=== PATIENT | female | born 1945 | race Caucasian/White ===

== ENCOUNTER 2018-05-04 19:19 | Inpatient (IN) | payer MEDICARE, MEDICAID ==
[~2018-05-04] VITALS: Ht 162.6 cm; Wt 85.7 kg
[~2018-05-04 19:19] MED LIST: ACET-2178 PO; ALBU2.5V13 IH; BACL-141 PO; BENA5TAB6 PO; COR3 PO; FAMO20TA8 PO; FLUOCINONIDE; FLUT1BLS IH; FLUT1DIS3 IH; IPRA3AMP9 INH; LEVO500T2 PO; LORA2VIA34 IJ; MYLANTA PO; NITR0.4T49 SL; OMEP20CA10 PO; ONDA4TAB5 PO; P20 PO; THEO200T17 PO; UMECLIDINIUM BROMIDE PO
[2018-05-04] MEDS ORDERED: METHYLPREDNISOLONE SOD SUCC 125 MG/2 ML VIAL IV STA (22:09)
[2018-05-04] MEDS ORDERED: ALBUTEROL (0.083%) 2.5MG/3ML NEB HHN STA (22:09)
[2018-05-04 22:49] LABS: MEAN CORPUSCULAR HEMOGLOBIN 17.8 pg (28.0-32.0); MEAN CORPUSCULAR VOLUME 62.8 fL (81.0-99.0); MEAN PLATELET VOLUME 8.7 fl (7.4-10.4); PLATELET 424 x1000/uL (130-400); RED BLOOD CELL COUNT 3.17 mill/uL (4.2-5.4); RED CELL DISTRIBUTION WIDTH 21.9 % (11.6-14.6)
[2018-05-04 22:50] LABS: HEMATOCRIT. 19.9 % (36.0-48.0); HEMOGLOBIN. 5.6 g/dL (12.0-16.0)
[2018-05-04 22:52] LABS: CHLORIDE 104 mEq/L (98-107)
[2018-05-04 23:06] LABS: PLATELET ESTIMATE NORMAL
[2018-05-05 01:09] LABS: CLARITY URINE CLOUDY (CLEAR); COLOR URINE YELLOW (YELLOW); KETONES URINE NEGATIVE (NEGATIVE); LEUKOCYTE ESTERASE URINE 3+ (NEGATIVE); NITRITE URINE NEGATIVE (NEGATIVE); OCCULT BLOOD URINE NEGATIVE (NEGATIVE); PH URINE 5.5 (4.5-8.0); PROTEIN URINE NEGATIVE (NEGATIVE); SPECIFIC GRAVITY URINE 1.012 (1.005-1.030); UROBILINOGEN URINE 0.2 E.U./dL (0.2-1.0)
[2018-05-05] MEDS ORDERED: CEFTRIAXONE 1 G PREMIX 50 ML IV ONE (04:30)
[2018-05-05] MEDS ORDERED: ACETAMINOPHEN 650MG/20.3ML UDC GT PRN (08:30)
[2018-05-05] MEDS ORDERED: DOCUSATE SODIUM 100MG CAPSULE PO PRN (08:30)
[2018-05-05] MEDS ORDERED: IPRATROPIUM/ALBUTEROL 0.5-3(2.5)MG/3ML NEB INH PRN (08:30)
[2018-05-05] MEDS ORDERED: DIPHENHYDRAMINE 50MG/ML VIAL IV PRN (08:30)
[2018-05-05] MEDS ORDERED: CLONIDINE 0.1MG TABLET PO PRN (08:30)
[2018-05-05] MEDS ORDERED: NA PHOS,M-B/NA PHOS,DI-BA ENEMA 118ML PR PRN (08:30)
[2018-05-05] MEDS ORDERED: HYDROCODONE/ACETAMINOPHEN 10/325MG TABLET PO PRN (08:30)
[2018-05-05] MEDS ORDERED: ACETAMINOPHEN 325MG TABLET PO PRN (08:30)
[2018-05-05] MEDS ORDERED: ONDANSETRON HCL 4MG/2ML INJ IV PRN (08:30)
[2018-05-05] MEDS ORDERED: MAGNESIUM/ALUMINUM HYDROXIDE/SIMETHICONE 30ML UDC PO PRN (08:30)
[2018-05-05] MEDS ORDERED: HYDROCODONE/ACETAMINOPHEN 5/325MG TABLET PO PRN (08:30)
[2018-05-05] MEDS ORDERED: ACETAMINOPHEN 650MG SUPP PR PRN (08:30)
[2018-05-05] MEDS ORDERED: GUAIFENESIN 200MG/10ML SUGAR FREE UDC PO PRN (08:30)
[2018-05-05 09:09] LABS: BASOPHILS % 2.2 % (0.0-2.0); EOSINOPHILS % 0.1 % (0.0-5.0); HEMATOCRIT. 28.2 % (36.0-48.0); HEMOGLOBIN. 8.6 g/dL (12.0-16.0); LYMPHOCYTES % 20.4 % (20.0-50.0); MEAN CORPUSCULAR HEMOGLOBIN 21.7 pg (28.0-32.0); MEAN CORPUSCULAR VOLUME 70.7 fL (81.0-99.0); MEAN PLATELET VOLUME 8.7 fl (7.4-10.4); MONOCYTES % 4.7 % (2.0-8.0); NEUTROPHILS % 72.6 % (40.0-76.0); PLATELET 393 x1000/uL (130-400); RED BLOOD CELL COUNT 3.98 mill/uL (4.2-5.4)
[2018-05-05 09:14] LABS: CHLORIDE 104 mEq/L (98-107)
[2018-05-05 09:19] LABS: D-DIMER 0.6 mg/L FEU (<0.50); INR 1.2; PROTHROMBIN TIME 11.8 sec (9.1-11.1)
[2018-05-05 09:21] LABS: LDL CHOLESTEROL 101 mg/dL (5-100); TOTAL IRON BINDING CAPACITY 475 ug/dL (250-450)
[2018-05-05 09:23] LABS: HDL CHOLESTEROL 50 mg/dL (40-59)
[2018-05-05] MEDS ORDERED: IOHEXOL-350 100 ML BOTTLE ONE (10:45)
[2018-05-05] MEDS ORDERED: LEVOFLOXACIN 500MG TABLET PO SCH (11:30)
[2018-05-05 11:48] VITALS: BP 129/67
[2018-05-05 12:00] VITALS: BP 129/67
[2018-05-05] MEDS: SODIUM CHLORIDE 0.9% INJ 3ML FLUSH IVF SCH ×2 (14:00→22:22)
[2018-05-05 15:57] LABS: CREATINE KINASE 32 IU/L (26-192)
[2018-05-05 15:58] LABS: CREATINE KINASE MB FRACTION 1.1 ng/mL (0.5-3.6)
[2018-05-05 16:00] VITALS: BP 125/52
[2018-05-05 20:00] VITALS: BP 143/58
[2018-05-05] MEDS ORDERED: CLOTRIMAZOLE 1% CREAM 30GM TOP SCH (21:00)
[2018-05-05] MEDS: NYSTATIN POWDER 15GM TOP SCH (21:50)
[2018-05-05] MEDS: BUDESONIDE 0.5MG/2ML NEB HHN SCH (22:00)
[2018-05-05] MEDS: ALBUTEROL (0.083%) 2.5MG/3ML NEB HHN SCH (22:01)
[2018-05-05 23:19] LABS: HEMATOCRIT 27.7 % (36.0-48.0); HEMOGLOBIN 8.5 g/dL (12.0-16.0)
[2018-05-06] VITALS: BP 128/60
[2018-05-06 00:11] LABS: CREATINE KINASE 38 IU/L (26-192); CREATINE KINASE MB FRACTION 1.4 ng/mL (0.5-3.6)
[2018-05-06 04:00] VITALS: BP 127/69
[2018-05-06] MEDS ORDERED: BENA20TA77 PO (04:36)
[2018-05-06] MEDS ORDERED: COR3 PO (04:36)
[2018-05-06] MEDS ORDERED: ACET-2178 MT (04:36)
[2018-05-06] MEDS ORDERED: IPRA3AMP31 NEB (04:36)
[2018-05-06] MEDS ORDERED: ASPI-1159 PO (04:36)
[2018-05-06] MEDS ORDERED: OMEP20CA10 PO (04:36)
[2018-05-06] MEDS ORDERED: DOCU-138 PO (04:36)
[2018-05-06] MEDS ORDERED: BACL-141 PO (04:36)
[2018-05-06] MEDS ORDERED: CRAN450T10 PO (04:36)
[2018-05-06 07:43] LABS: HEMOGLOBIN. 8.1 g/dL (12.0-16.0); MEAN CORPUSCULAR VOLUME 70.6 fL (81.0-99.0); MEAN PLATELET VOLUME 8.2 fl (7.4-10.4); PLATELET 336 x1000/uL (130-400); RED BLOOD CELL COUNT 3.68 mill/uL (4.2-5.4); RED CELL DISTRIBUTION WIDTH 28.3 % (11.6-14.6)
[2018-05-06 08:00] VITALS: BP 117/63
[2018-05-06] MEDS: ALBUTEROL (0.083%) 2.5MG/3ML NEB HHN SCH ×3 (08:25→21:09)
[2018-05-06] MEDS: BUDESONIDE 0.5MG/2ML NEB HHN SCH ×2 (08:25→21:09)
[2018-05-06] MEDS: NYSTATIN POWDER 15GM TOP SCH ×2 (10:49→20:50)
[2018-05-06] MEDS ORDERED: MIDAZOLAM HCL 5 MG/5 ML VIAL ONE (11:57)
[2018-05-06] MEDS ORDERED: PROPOFOL 200MG/20ML VIAL IV ONE (11:57)
[2018-05-06] MEDS ORDERED: SUCCINYLCHOLINE CHLORIDE 200MG/10ML IV ONE (11:57)
[2018-05-06] MEDS ORDERED: BACTERIOSTATIC SODIUM CHLORIDE 0.9% 30ML VIAL IJ ONE (11:59)
[2018-05-06] MEDS ORDERED: SIMETHICONE 40 MG/0.6 ML 30ML ONE (11:59)
[2018-05-06 12:19] LABS: CHLORIDE 104 mEq/L (98-107)
[2018-05-06] MEDS ORDERED: SODIUM CHLORIDE 0.9% 1,000 ML IV ONE (12:21)
[2018-05-06] MEDS ORDERED: HYDROMORPHONE HCL/PF 2MG/ML CPJ IV PRN (12:30)
[2018-05-06] MEDS ORDERED: ONDANSETRON HCL 4MG/2ML INJ IV PRN (12:30)
[2018-05-06 12:38] LABS: LDL CHOLESTEROL 98 mg/dL (5-100)
[2018-05-06 12:40] LABS: HDL CHOLESTEROL 41 mg/dL (40-59)
[2018-05-06 13:59] LABS: NUCLEATED RED BLOOD CELLS 1 /100 WBC
[2018-05-06 14:00] LABS: PLATELET ESTIMATE NORMAL
[2018-05-06] MEDS: LEVOFLOXACIN 250MG TABLET PO SCH (14:57)
[2018-05-06] MEDS: SODIUM CHLORIDE 0.9% INJ 3ML FLUSH IVF SCH ×2 (15:20→20:51)
[2018-05-06 16:00] VITALS: BP 116/59
[2018-05-06] MEDS ORDERED: METOCLOPRAMIDE HCL 10MG/2ML VIAL IV NR (17:00)
[2018-05-06 20:11] VITALS: BP 116/61
[2018-05-06 21:39] LABS: FOLIC ACID (FOLATE) SERUM 13.1 ng/mL (>5.38)
[2018-05-07 00:05] VITALS: BP 118/60
[2018-05-07] MEDS: ALBUTEROL (0.083%) 2.5MG/3ML NEB HHN SCH ×4 (02:52→21:13)
[2018-05-07 03:32] VITALS: BP 116/62
[2018-05-07] MEDS: METOCLOPRAMIDE HCL 10MG/2ML VIAL IV SCH ×3 (05:51→19:00)
[2018-05-07] MEDS: SODIUM CHLORIDE 0.9% INJ 3ML FLUSH IVF SCH ×3 (05:51→21:17)
[2018-05-07] MEDS: NYSTATIN POWDER 15GM TOP SCH ×2 (08:47→21:17)
[2018-05-07 09:00] VITALS: BP 135/58
[2018-05-07] MEDS: BUDESONIDE 0.5MG/2ML NEB HHN SCH ×2 (09:41→21:13)
[2018-05-07] MEDS: LEVOFLOXACIN 250MG TABLET PO SCH (11:14)
[2018-05-07 12:00] VITALS: BP 100/42
[2018-05-07] MEDS: DIATR MEGLU/DIATRIZOATE SOLN 30ML PO SCH ×2 (14:14→15:17)
[2018-05-07 16:00] VITALS: BP 101/47
[2018-05-07 16:55] LABS: HEMATOCRIT. 28.2 % (36.0-48.0); HEMOGLOBIN. 8.5 g/dL (12.0-16.0); MEAN CORPUSCULAR HEMOGLOBIN 21.4 pg (28.0-32.0); MEAN CORPUSCULAR VOLUME 70.9 fL (81.0-99.0); MEAN PLATELET VOLUME 8.4 fl (7.4-10.4); PLATELET 305 x1000/uL (130-400); RED BLOOD CELL COUNT 3.98 mill/uL (4.2-5.4); RED CELL DISTRIBUTION WIDTH 29.2 % (11.6-14.6)
[2018-05-07 17:02] LABS: CHLORIDE 106 mEq/L (98-107)
[2018-05-07 17:42] LABS: PLATELET ESTIMATE NORMAL
[2018-05-07] MEDS: IRON SUCROSE COMPLEX 100 MG/5 ML ML IV SCH (19:00)
[2018-05-07 20:26] VITALS: BP 114/61
[2018-05-08] VITALS (7 sets, daily range): BP systolic 108–129; BP diastolic 49–66
[2018-05-08] MEDS: ALBUTEROL (0.083%) 2.5MG/3ML NEB HHN SCH ×4 (01:44→20:00)
[2018-05-08] MEDS: METOCLOPRAMIDE HCL 10MG/2ML VIAL IV SCH ×3 (05:45→18:40)
[2018-05-08] MEDS: SODIUM CHLORIDE 0.9% INJ 3ML FLUSH IVF SCH ×2 (05:47→18:40)
[2018-05-08] MEDS: BUDESONIDE 0.5MG/2ML NEB HHN SCH ×2 (08:32→19:59)
[2018-05-08] MEDS: NYSTATIN POWDER 15GM TOP SCH (09:16)
[2018-05-08] MEDS ORDERED: AJ125 PO (10:49)
[2018-05-08] MEDS ORDERED: FERR236T3 MT (10:50)
[2018-05-08] MEDS: AMOXICILLIN 500 MG CAPSULE PO SCH ×2 (11:07→18:40)
[2018-05-08] MEDS: IRON SUCROSE COMPLEX 100 MG/5 ML ML IV SCH (18:40)
== END 2018-05-08 23:35 | DRG 663 ==
LOC: ER 19:35 → 5WST 23:20 → EDBEDREQ 23:22 → EDBEDREQTM 23:22 → ENRESERV 05-05 10:35
PROVIDERS: ADMIT Family Medicine; ATTEND Family Medicine
PROC: 30233N1 Transfusion of Nonautologous Red Blood Cells into Peripheral Vein, Percutaneous Approach (ICD-10-PCS; principal; 2018-05-05)
PROC: 0DB68ZX Excision of Stomach, Via Natural or Artificial Opening Endoscopic, Diagnostic (ICD-10-PCS; 2018-05-06)
DX: D50.9 Iron deficiency anemia, unspecified (principal); L89.150 Pressure ulcer of sacral region, unstageable; L89.320 Pressure ulcer of left buttock, unstageable; L89.310 Pressure ulcer of right buttock, unstageable; I95.9 Hypotension, unspecified; R53.2 Functional quadriplegia; J44.9 Chronic obstructive pulmonary disease, unspecified; M06.9 Rheumatoid arthritis, unspecified; K29.60 Other gastritis without bleeding; K22.10 Ulcer of esophagus without bleeding; E44.1 Mild protein-calorie malnutrition; N39.0 Urinary tract infection, site not specified; K44.9 Diaphragmatic hernia without obstruction or gangrene; K21.0 Gastro-esophageal reflux disease with esophagitis; K57.90 Diverticulosis of intestine, part unspecified, without perforation or abscess without bleeding; Z74.01 Bed confinement status; Z68.32 Body mass index [BMI] 32.0-32.9, adult; Z88.2 Allergy status to sulfonamides; Z99.3 Dependence on wheelchair; Z79.899 Other long term (current) drug therapy
CPT/HCPCS: 36415; 71045; 71250; 71275; 74176; 80061; 82550; 82553; 82607; 82728; 82746; 83036; 83540; 83550; 83880; 84134; 84484; 85014; 85018; 85044; 85379; 86850; 86900; 86920; 87077; 87186; 88305; 88313; 93005; 93306; 93970; 94640; 96365; 96375; 99291; J0330; J0696; J2250; J2704; J2765; J2930; J3490; J7030; J7050; J7611; J7626; P9016; Q9963; Q9967

== ENCOUNTER 2018-09-05 09:55 | Inpatient (IN) | payer MEDICARE, MEDICAID ==
[2018-09-05] VITALS (8 sets, daily range): BP systolic 126–150; BP diastolic 65–95
[~2018-09-05] VITALS: Ht 162.6 cm; Wt 86.2 kg
[~2018-09-05 09:55] MED LIST changes: -ACET-2178 PO; +AJ125 PO; +ASPI-1159 PO; -BENA5TAB6 PO; -COR3 PO; +CRAN450T10 PO; +DOCU-138 PO; +FERR236T3 MT; -FLUOCINONIDE; -FLUT1BLS IH; -FLUT1DIS3 IH; +IPRA3AMP31 NEB; -IPRA3AMP9 INH; -LEVO500T2 PO; -LORA2VIA34 IJ; -MYLANTA PO; -UMECLIDINIUM BROMIDE PO
[2018-09-05] MEDS ORDERED: SODIUM CHLORIDE 0.9% 1,000 ML IV ONE (10:11)
[2018-09-05] MEDS ORDERED: ALBUTEROL (0.083%) 2.5MG/3ML NEB HHN STA ×2 (10:11→11:03)
[2018-09-05] MEDS ORDERED: MAGNESIUM 2 G PREMIX 50 ML IV STA (10:11)
[2018-09-05] MEDS ORDERED: METHYLPREDNISOLONE SOD SUCC 125 MG/2 ML VIAL IV STA (10:11)
[2018-09-05] MEDS ORDERED: IPRATROPIUM BROMIDE (0.02%) 0.5MG/2.5ML NEB HHN STA ×2 (10:11→11:03)
[2018-09-05 10:25] LABS: HEMATOCRIT. 36.1 % (36.0-48.0); MEAN CORPUSCULAR HEMOGLOBIN 24.6 pg (28.0-32.0); MEAN CORPUSCULAR VOLUME 80.6 fL (81.0-99.0); PLATELET 269 x1000/uL (130-400); RED BLOOD CELL COUNT 4.47 mill/uL (4.2-5.4); RED CELL DISTRIBUTION WIDTH 21.5 % (11.6-14.6)
[2018-09-05] MEDS ORDERED: FAMOTIDINE 20MG/2ML VIAL IV ONE (10:30)
[2018-09-05 10:36] LABS: CHLORIDE 101 mEq/L (98-107); INR 1.1; PARTIAL THROMBOPLASTIN TIME 28.2 sec (23.4-31.0); PROTHROMBIN TIME 11.4 sec (9.1-11.1)
[2018-09-05 10:42] LABS: THEOPHYLLINE 17.4 ug/mL (10-20)
[2018-09-05] MEDS ORDERED: LEVOFLOXACIN 500MG PREMIX 100 ML IV ONE (11:00)
[2018-09-05 11:31] LABS: PLATELET ESTIMATE NORMAL
[2018-09-05 12:48] LABS: BG BASE EXCESS -2.9 mmol/L (-2.0-2.0); BG CARBOXYHEMOGLOBIN 0.5 % (0.5-1.5); BG DEOXYHEMOGLOBIN 4.3 % (0.0-5.0); BG FRACTION INSPIRED OXYGEN 32; BG HCO3 ACT 21.9 mmol/L (22.0-26.0); BG METHEMOGLOBIN 0.4 % (0.0-1.5); BG OXYGEN SATURATION 95.7 % (92.0-98.5); BG OXYHEMOGLOBIN 94.8 % (94.0-97.0); BG PCO2 38.2 mmHg (35.0-45.0); BG PH 7.376 (7.350-7.450); BG PO2 81.9 mmHg (75.0-100.0); BG SAMPLE SITE RIGHT RADIAL; BG TOTAL HEMOGLOBIN 11.6 g/dL (12.0-18.0); BG VENT MODE NASAL CANNULA
[2018-09-05] MEDS ORDERED: POTASSIUM CHLORIDE 20MEQ TABLET SR PO ONE (13:00)
[2018-09-05] MEDS ORDERED: METHYLPREDNISOLONE SOD SUCC 125 MG/2 ML VIAL IV SCH (14:00)
[2018-09-05 15:14] LABS: CLARITY URINE CLEAR (CLEAR); COLOR URINE YELLOW (YELLOW); KETONES URINE 1+ (NEGATIVE); LEUKOCYTE ESTERASE URINE NEGATIVE (NEGATIVE); NITRITE URINE NEGATIVE (NEGATIVE); OCCULT BLOOD URINE 1+ (NEGATIVE); PROTEIN URINE NEGATIVE (NEGATIVE); SPECIFIC GRAVITY URINE 1.007 (1.005-1.030); UROBILINOGEN URINE 0.2 E.U./dL (0.2-1.0)
[2018-09-05] MEDS ORDERED: IPRATROPIUM/ALBUTEROL 0.5-3(2.5)MG/3ML NEB HHN PRN (18:15)
[2018-09-05] MEDS: IPRATROPIUM BROMIDE (0.02%) 0.5MG/2.5ML NEB HHN SCH (20:28)
[2018-09-05] MEDS ORDERED: ACETAMINOPHEN 325MG TABLET PO PRN (20:30)
[2018-09-05] MEDS: ALPRAZOLAM 0.5 MG TABLET PO PRN (20:39)
[2018-09-05] MEDS: THEOPHYLLINE ANHYDROUS 80 MG/15 ML 120ML PO SCH (20:40)
[2018-09-05] MEDS ORDERED: DEXTROSE 50% WATER 50ML SYRINGE IV PRN (22:15)
[2018-09-05] MEDS: METHYLPREDNISOLONE SOD SUCC 125 MG/2 ML VIAL IV SCH (22:42)
[2018-09-06] VITALS (18 sets, daily range): BP systolic 97–162; BP diastolic 68–93
[2018-09-06] MEDS ORDERED: ALBUTEROL (0.083%) 2.5MG/3ML NEB HHN SCH
[2018-09-06] MEDS: IPRATROPIUM BROMIDE (0.02%) 0.5MG/2.5ML NEB HHN SCH ×6 (02:30→20:30)
[2018-09-06] MEDS: BLOOD SUGAR DIAGNOSTIC STRIP TEST SCH ×4 (06:08→21:05)
[2018-09-06] MEDS: METHYLPREDNISOLONE SOD SUCC 125 MG/2 ML VIAL IV SCH (06:17)
[2018-09-06] MEDS: OMEPRAZOLE 20MG CAPSULE EXTENDED RELEASE PO SCH (06:17)
[2018-09-06 06:38] LABS: HEMATOCRIT. 31.8 % (36.0-48.0); HEMOGLOBIN. 9.9 g/dL (12.0-16.0); MEAN CORPUSCULAR HEMOGLOBIN 25.1 pg (28.0-32.0); MEAN CORPUSCULAR VOLUME 80.7 fL (81.0-99.0); MEAN PLATELET VOLUME 8.2 fl (7.4-10.4); PLATELET 253 x1000/uL (130-400); RED BLOOD CELL COUNT 3.94 mill/uL (4.2-5.4); RED CELL DISTRIBUTION WIDTH 21.9 % (11.6-14.6)
[2018-09-06 06:42] LABS: CHLORIDE 105 mEq/L (98-107)
[2018-09-06] MEDS: INSULIN LISPRO 100 UNITS/ML SUBCUT SCH ×4 (07:59→21:00)
[2018-09-06] MEDS: THEOPHYLLINE ANHYDROUS 80 MG/15 ML 120ML PO SCH ×2 (08:00→21:14)
[2018-09-06] MEDS: METHYLPREDNISOLONE SOD SUCC 40 MG/ML VIAL IV SCH ×2 (13:16→21:13)
[2018-09-06] MEDS: ALPRAZOLAM 0.5 MG TABLET PO PRN (13:16)
[2018-09-06] MEDS ORDERED: LORAZEPAM 2MG/ML CPJ IV NR (14:00)
[2018-09-06] MEDS ORDERED: LORAZEPAM 2MG/ML CPJ IV ONE (14:15)
[2018-09-06] MEDS: ACETYLCYSTEINE 100MG/ML 10% VIAL 4ML INH SCH ×2 (16:31→21:14)
[2018-09-06 16:56] LABS: PLATELET ESTIMATE NORMAL
[2018-09-07] VITALS (12 sets, daily range): BP systolic 111–150; BP diastolic 50–102
[2018-09-07] MEDS: IPRATROPIUM BROMIDE (0.02%) 0.5MG/2.5ML NEB HHN SCH ×5 (00:40→20:35)
[2018-09-07] MEDS: METHYLPREDNISOLONE SOD SUCC 40 MG/ML VIAL IV SCH ×3 (05:32→21:30)
[2018-09-07] MEDS: ACETYLCYSTEINE 100MG/ML 10% VIAL 4ML INH SCH ×2 (05:32→15:30)
[2018-09-07] MEDS: BLOOD SUGAR DIAGNOSTIC STRIP TEST SCH ×4 (06:17→21:30)
[2018-09-07] MEDS: INSULIN LISPRO 100 UNITS/ML SUBCUT SCH ×4 (06:17→21:00)
[2018-09-07] MEDS: OMEPRAZOLE 20MG CAPSULE EXTENDED RELEASE PO SCH (06:20)
[2018-09-07] MEDS: THEOPHYLLINE ANHYDROUS 80 MG/15 ML 120ML PO SCH ×2 (08:07→17:45)
[2018-09-07 09:40] LABS: BG BASE EXCESS 5.3 mmol/L (-2.0-2.0); BG CARBOXYHEMOGLOBIN 0.2 % (0.5-1.5); BG DEOXYHEMOGLOBIN 3.2 % (0.0-5.0); BG FRACTION INSPIRED OXYGEN 28; BG HCO3 ACT 29.6 mmol/L (22.0-26.0); BG METHEMOGLOBIN 0.3 % (0.0-1.5); BG OXYGEN SATURATION 96.8 % (92.0-98.5); BG OXYHEMOGLOBIN 96.3 % (94.0-97.0); BG PCO2 42.6 mmHg (35.0-45.0); BG PO2 88.7 mmHg (75.0-100.0); BG SAMPLE SITE RIGHT BRACHIAL; BG TOTAL HEMOGLOBIN 10.9 g/dL (12.0-18.0); BG VENT MODE NASAL CANNULA
[2018-09-07] MEDS: ALPRAZOLAM 0.5 MG TABLET PO PRN (21:30)
[2018-09-08] VITALS (11 sets, daily range): BP systolic 119–151; BP diastolic 57–103
[2018-09-08] MEDS: IPRATROPIUM BROMIDE (0.02%) 0.5MG/2.5ML NEB HHN SCH ×6 (01:55→21:19)
[2018-09-08] MEDS: BLOOD SUGAR DIAGNOSTIC STRIP TEST SCH ×4 (06:53→20:18)
[2018-09-08] MEDS: OMEPRAZOLE 20MG CAPSULE EXTENDED RELEASE PO SCH (06:54)
[2018-09-08] MEDS: METHYLPREDNISOLONE SOD SUCC 40 MG/ML VIAL IV SCH ×2 (06:54→16:42)
[2018-09-08] MEDS: INSULIN LISPRO 100 UNITS/ML SUBCUT SCH ×4 (07:06→20:56)
[2018-09-08] MEDS: THEOPHYLLINE ANHYDROUS 80 MG/15 ML 120ML PO SCH ×2 (08:16→17:46)
[2018-09-08] MEDS: ALPRAZOLAM 0.5 MG TABLET PO PRN ×2 (16:42→20:56)
[2018-09-09] VITALS (8 sets, daily range): BP systolic 129–152; BP diastolic 58–98
[2018-09-09] MEDS: IPRATROPIUM BROMIDE (0.02%) 0.5MG/2.5ML NEB HHN SCH ×5 (01:56→15:51)
[2018-09-09] MEDS: BLOOD SUGAR DIAGNOSTIC STRIP TEST SCH ×3 (06:49→17:08)
[2018-09-09] MEDS: INSULIN LISPRO 100 UNITS/ML SUBCUT SCH ×2 (06:50→13:18)
[2018-09-09] MEDS: OMEPRAZOLE 20MG CAPSULE EXTENDED RELEASE PO SCH (06:55)
[2018-09-09] MEDS: METHYLPREDNISOLONE SOD SUCC 40 MG/ML VIAL IV SCH (09:15)
[2018-09-09] MEDS: THEOPHYLLINE ANHYDROUS 80 MG/15 ML 120ML PO SCH (09:16)
[2018-09-09] MEDS: ALPRAZOLAM 0.5 MG TABLET PO PRN (15:31)
[2018-09-09 17:13] LABS: HEMATOCRIT. 38.1 % (36.0-48.0); HEMOGLOBIN. 11.8 g/dL (12.0-16.0); MEAN CORPUSCULAR HEMOGLOBIN 25.2 pg (28.0-32.0); MEAN CORPUSCULAR VOLUME 80.8 fL (81.0-99.0); MEAN PLATELET VOLUME 8.3 fl (7.4-10.4); PLATELET 326 x1000/uL (130-400); RED BLOOD CELL COUNT 4.71 mill/uL (4.2-5.4); RED CELL DISTRIBUTION WIDTH 20.7 % (11.6-14.6)
[2018-09-09 17:24] LABS: CHLORIDE 100 mEq/L (98-107)
[2018-09-09 20:42] LABS: ATYPICAL LYMPHOCYTES 1; PLATELET ESTIMATE NORMAL
[2018-09-10] MEDS ORDERED: METHYLPREDNISOLONE SOD SUCC 40 MG/ML VIAL IV SCH (09:00)
== END 2018-09-09 17:15 | DRG 140 ==
LOC: ER 09:55 → 3WST 11:29 → EDBEDREQ 11:33 → ENRESERV 16:48
PROVIDERS: ADMIT Family Medicine; ATTEND Family Medicine
PROC: 5A09357 Assistance with Respiratory Ventilation, Less than 24 Consecutive Hours, Continuous Positive Airway Pressure (ICD-10-PCS; principal; 2018-09-06)
PROC: 5A09357 Assistance with Respiratory Ventilation, Less than 24 Consecutive Hours, Continuous Positive Airway Pressure (ICD-10-PCS; 2018-09-08)
DX: J44.1 Chronic obstructive pulmonary disease with (acute) exacerbation (principal); J96.21 Acute and chronic respiratory failure with hypoxia; E11.65 Type 2 diabetes mellitus with hyperglycemia; I48.91 Unspecified atrial fibrillation; D64.9 Anemia, unspecified; K21.9 Gastro-esophageal reflux disease without esophagitis; D72.829 Elevated white blood cell count, unspecified; K44.9 Diaphragmatic hernia without obstruction or gangrene; K29.60 Other gastritis without bleeding; M06.9 Rheumatoid arthritis, unspecified; Z74.01 Bed confinement status; Z90.710 Acquired absence of both cervix and uterus; Z88.2 Allergy status to sulfonamides; Z79.82 Long term (current) use of aspirin
CPT/HCPCS: 36415; 36600; 71045; 80048; 80198; 82375; 82805; 82962; 83605; 83880; 84145; 84484; 87804; 93005; 94640; 94660; 96365; 96366; 96375; 99291; A6261; J1815; J1956; J2060; J2920; J2930; J3475; J3490; J7030; J7608; J7611; A4315

== ENCOUNTER 2019-08-07 22:06 | Inpatient (IN) | payer MEDICAID, MEDICARE ==
[~2019-08-07] VITALS: Ht 165.1 cm; Wt 71.9 kg
[~2019-08-07 22:06] MED LIST changes: -ASPI-1159 PO; +ASPI-1497 PO; -OMEP20CA10 PO; +OMEP20CA14 PO
[2019-08-07] MEDS ORDERED: ALBUTEROL (0.083%) 2.5MG/3ML NEB HHN STA (22:33)
[2019-08-07] MEDS ORDERED: MAGNESIUM 2 G PREMIX 50 ML IV STA (22:33)
[2019-08-07] MEDS ORDERED: IPRATROPIUM BROMIDE (0.02%) 0.5MG/2.5ML NEB HHN STA (22:33)
[2019-08-07] MEDS ORDERED: METHYLPREDNISOLONE SOD SUCC 125 MG/2 ML VIAL IV STA (22:33)
[2019-08-07 23:11] LABS: HEMATOCRIT 33.5 % (36.0-48.0); MEAN CORPUSCULAR HEMOGLOBIN 26.2 pg (28.0-32.0); MEAN CORPUSCULAR VOLUME 79.9 fL (81.0-99.0); PLATELET 235 x1000/uL (130-400); RED BLOOD CELL COUNT 4.19 mill/uL (4.2-5.4); RED CELL DISTRIBUTION WIDTH 17.6 % (11.6-14.6)
[2019-08-07 23:19] LABS: CHLORIDE 99 mEq/L (98-107)
[2019-08-08] MEDS ORDERED: OSELTAMIVIR 75MG CAPSULE PO SCH (03:00)
[2019-08-08 09:55] LABS: BASOPHILS % 0.4 % (0.0-2.0); HEMATOCRIT. 32.1 % (36.0-48.0); HEMOGLOBIN. 10.5 g/dL (12.0-16.0); LYMPHOCYTES % 7.1 % (20.0-50.0); MEAN CORPUSCULAR HEMOGLOBIN 26.1 pg (28.0-32.0); MEAN CORPUSCULAR VOLUME 80.1 fL (81.0-99.0); MEAN PLATELET VOLUME 8.7 fl (7.4-10.4); MONOCYTES % 8.4 % (2.0-8.0); NEUTROPHILS % 84.1 % (40.0-76.0); PLATELET 219 x1000/uL (130-400); RED BLOOD CELL COUNT 4.01 mill/uL (4.2-5.4)
[2019-08-08 10:03] LABS: CHLORIDE 99 mEq/L (98-107)
[2019-08-08 10:05] LABS: BG BASE EXCESS 0.2 mmol/L (-2.0-2.0); BG BILEVEL POS AIRWAY PRESSURE 15/5; BG CARBOXYHEMOGLOBIN 0.3 % (0.5-1.5); BG DEOXYHEMOGLOBIN 2.4 % (0.0-5.0); BG FRACTION INSPIRED OXYGEN 40; BG HCO3 ACT 24.5 mmol/L (22.0-26.0); BG METHEMOGLOBIN 0.3 % (0.0-1.5); BG OXYGEN SATURATION 97.6 % (92.0-98.5); BG PCO2 38.6 mmHg (35.0-45.0); BG PH 7.421 (7.350-7.450); BG PO2 101.9 mmHg (75.0-100.0); BG SAMPLE SITE RIGHT RADIAL; BG VENT MODE MASK - BIPAP; BG VENT RATE 12 set
[2019-08-08] MEDS ORDERED: IPRATROPIUM/ALBUTEROL 0.5-3(2.5)MG/3ML NEB HHN PRN (11:00)
[2019-08-08] MEDS: IPRATROPIUM/ALBUTEROL 0.5-3(2.5)MG/3ML NEB HHN SCH ×4 (14:20→23:56)
[2019-08-08] MEDS ORDERED: CLONIDINE 0.1MG TABLET PO PRN (17:32)
[2019-08-08] MEDS: BUDESONIDE 0.5MG/2ML NEB HHN SCH (20:15)
[2019-08-08] MEDS ORDERED: PANTOPRAZOLE 40MG DR TABLET PO SCH (21:00)
[2019-08-08] MEDS ORDERED: OSELTAMIVIR 75MG CAPSULE PO NR (21:00)
[2019-08-08] MEDS ORDERED: MAGNESIUM/ALUMINUM HYDROXIDE/SIMETHICONE 30ML UDC PO PRN (21:45)
[2019-08-08 22:00] VITALS: BP 139/81
[2019-08-08] MEDS ORDERED: ACETYLCYSTEINE 100MG/ML 10% VIAL 4ML INH NR (22:00)
[2019-08-08 23:56] VITALS: BP 139/81
[2019-08-09] VITALS (8 sets, daily range): BP systolic 107–128; BP diastolic 36–61
[2019-08-09] MEDS: IPRATROPIUM/ALBUTEROL 0.5-3(2.5)MG/3ML NEB HHN SCH ×5 (03:21→20:33)
[2019-08-09] MEDS: OMEPRAZOLE 20MG CAPSULE EXTENDED RELEASE PO SCH (06:41)
[2019-08-09] MEDS ORDERED: PHENYLEPHRINE/SHK LV/MO/PET,WH RECTAL OINT 57GM PR SCH (08:00)
[2019-08-09] MEDS: BUDESONIDE 0.5MG/2ML NEB HHN SCH ×2 (08:55→20:33)
[2019-08-09] MEDS: ACETYLCYSTEINE 100MG/ML 10% VIAL 4ML INH SCH ×2 (08:55→16:04)
[2019-08-09] MEDS ORDERED: PHENYLEPHRINE/SHK LV/MO/PET,WH RECTAL OINT 57GM PR PRN (09:00)
[2019-08-09] MEDS: OSELTAMIVIR 75MG CAPSULE PO SCH ×2 (09:41→20:12)
[2019-08-09 09:51] LABS: CHLORIDE 101 mEq/L (98-107); HEMATOCRIT. 30.7 % (36.0-48.0); HEMOGLOBIN. 10.2 g/dL (12.0-16.0); MEAN CORPUSCULAR HEMOGLOBIN 26.3 pg (28.0-32.0); MEAN CORPUSCULAR VOLUME 79.4 fL (81.0-99.0); MEAN PLATELET VOLUME 8.4 fl (7.4-10.4); PLATELET 232 x1000/uL (130-400); RED BLOOD CELL COUNT 3.87 mill/uL (4.2-5.4); RED CELL DISTRIBUTION WIDTH 17.7 % (11.6-14.6)
[2019-08-09 09:59] LABS: PHOSPHORUS 2.7 mg/dL (2.5-4.9)
[2019-08-09] MEDS: ACETAMINOPHEN 325MG TABLET PO PRN ×2 (10:02→20:11)
[2019-08-09 10:36] LABS: PLATELET ESTIMATE NORMAL
[2019-08-09] MEDS ORDERED: POTASSIUM CHLORIDE 20MEQ TABLET SR PO SCH (11:45)
[2019-08-10] VITALS (12 sets, daily range): BP systolic 120–151; BP diastolic 56–80
[2019-08-10] MEDS: ACETYLCYSTEINE 100MG/ML 10% VIAL 4ML INH SCH ×3 (00:55→17:14)
[2019-08-10] MEDS: IPRATROPIUM/ALBUTEROL 0.5-3(2.5)MG/3ML NEB HHN SCH ×6 (00:55→19:43)
[2019-08-10] MEDS: ACETAMINOPHEN 325MG TABLET PO PRN ×2 (04:25→11:13)
[2019-08-10] MEDS: OMEPRAZOLE 20MG CAPSULE EXTENDED RELEASE PO SCH (06:34)
[2019-08-10 07:54] LABS: CLARITY URINE CLEAR (CLEAR); COLOR URINE YELLOW (YELLOW); KETONES URINE TRACE (NEGATIVE); LEUKOCYTE ESTERASE URINE 1+ (NEGATIVE); NITRITE URINE NEGATIVE (NEGATIVE); OCCULT BLOOD URINE 2+ (NEGATIVE); PROTEIN URINE 3+ (NEGATIVE); SPECIFIC GRAVITY URINE 1.015 (1.005-1.030); UROBILINOGEN URINE 0.2 E.U./dL (0.2-1.0)
[2019-08-10] MEDS: BUDESONIDE 0.5MG/2ML NEB HHN SCH ×2 (08:35→19:43)
[2019-08-10] MEDS: OSELTAMIVIR 75MG CAPSULE PO SCH ×2 (09:19→21:52)
[2019-08-10 12:53] LABS: HEMATOCRIT. 28.4 % (36.0-48.0); HEMOGLOBIN. 9.3 g/dL (12.0-16.0); MEAN CORPUSCULAR HEMOGLOBIN 26.2 pg (28.0-32.0); MEAN PLATELET VOLUME 8.7 fl (7.4-10.4); PLATELET 200 x1000/uL (130-400); RED BLOOD CELL COUNT 3.56 mill/uL (4.2-5.4); RED CELL DISTRIBUTION WIDTH 17.7 % (11.6-14.6)
[2019-08-10 13:04] LABS: CHLORIDE 105 mEq/L (98-107)
[2019-08-10 14:00] LABS: PLATELET ESTIMATE NORMAL
[2019-08-11] VITALS (10 sets, daily range): BP systolic 109–162; BP diastolic 61–89
[2019-08-11] MEDS: ACETYLCYSTEINE 100MG/ML 10% VIAL 4ML INH SCH ×3 (00:05→16:22)
[2019-08-11] MEDS: IPRATROPIUM/ALBUTEROL 0.5-3(2.5)MG/3ML NEB HHN SCH ×5 (00:05→16:22)
[2019-08-11] MEDS: OMEPRAZOLE 20MG CAPSULE EXTENDED RELEASE PO SCH (07:53)
[2019-08-11] MEDS: OSELTAMIVIR 75MG CAPSULE PO SCH (08:12)
[2019-08-11] MEDS: BUDESONIDE 0.5MG/2ML NEB HHN SCH (08:32)
[2019-08-11] MEDS ORDERED: TAM75 PO (12:39)
[2019-08-11] MEDS: ACETAMINOPHEN 325MG TABLET PO PRN (12:55)
[2019-08-12] MEDS ORDERED: FAMOTIDINE 20MG TABLET PO SCH (07:30)
== END 2019-08-11 21:10 | DRG 140 ==
LOC: ER 22:06 → 5EST 08-08 02:24 → ENRESERV 08-08 20:19
PROVIDERS: ADMIT Family Medicine; ATTEND Family Medicine
PROC: 5A09357 Assistance with Respiratory Ventilation, Less than 24 Consecutive Hours, Continuous Positive Airway Pressure (ICD-10-PCS; 2019-08-07)
PROC: 5A09357 Assistance with Respiratory Ventilation, Less than 24 Consecutive Hours, Continuous Positive Airway Pressure (ICD-10-PCS; principal; 2019-08-08)
DX: J44.1 Chronic obstructive pulmonary disease with (acute) exacerbation (principal); J96.21 Acute and chronic respiratory failure with hypoxia; E11.9 Type 2 diabetes mellitus without complications; J10.1 Influenza due to other identified influenza virus with other respiratory manifestations; M06.9 Rheumatoid arthritis, unspecified; K21.9 Gastro-esophageal reflux disease without esophagitis; K44.9 Diaphragmatic hernia without obstruction or gangrene; K29.60 Other gastritis without bleeding; E78.5 Hyperlipidemia, unspecified; I10 Essential (primary) hypertension; G43.909 Migraine, unspecified, not intractable, without status migrainosus; M19.90 Unspecified osteoarthritis, unspecified site; K29.00 Acute gastritis without bleeding; Z74.01 Bed confinement status; Z86.73 Personal history of transient ischemic attack (TIA), and cerebral infarction without residual deficits; Z87.891 Personal history of nicotine dependence; Z88.2 Allergy status to sulfonamides; Z79.82 Long term (current) use of aspirin; Z79.899 Other long term (current) drug therapy
CPT/HCPCS: 36415; 36600; 71045; 80053; 81003; 82375; 82805; 83605; 83735; 84100; 84145; 85025; 85027; 87804; 94640; 94644; 94660; 96365; 96366; 96375; 99284; 99285; J2930; J3475; J7608; J7626

== ENCOUNTER 2020-07-08 10:05 | Inpatient (IN) | payer MEDICARE, MEDICAID ==
[~2020-07-08] VITALS: Ht 167.6 cm; Wt 87.5 kg
[~2020-07-08 10:05] MED LIST changes: +TAM75 PO
[2020-07-08] MEDS ORDERED: LORAZEPAM 2MG/ML CPJ IV ONE (11:30)
[2020-07-08 11:48] LABS: HEMATOCRIT. 31.4 % (36.0-48.0); HEMOGLOBIN. 10.9 g/dL (12.0-16.0); MEAN CORPUSCULAR HEMOGLOBIN 28.4 pg (28.0-32.0); MEAN CORPUSCULAR VOLUME 81.6 fL (81.0-99.0); MEAN PLATELET VOLUME 7.9 fl (7.4-10.4); PLATELET 479 x1000/uL (130-400); RED BLOOD CELL COUNT 3.84 mill/uL (4.2-5.4); RED CELL DISTRIBUTION WIDTH 15.3 % (11.6-14.6)
[2020-07-08 11:56] LABS: CLARITY URINE CLEAR (CLEAR); COLOR URINE YELLOW (YELLOW); KETONES URINE TRACE (NEGATIVE); LEUKOCYTE ESTERASE URINE TRACE (NEGATIVE); NITRITE URINE NEGATIVE (NEGATIVE); OCCULT BLOOD URINE TRACE (NEGATIVE); PROTEIN URINE 3+ (NEGATIVE); SPECIFIC GRAVITY URINE 1.013 (1.005-1.030); UROBILINOGEN URINE 0.2 E.U./dL (0.2-1.0)
[2020-07-08 12:01] LABS: CHLORIDE 65 mEq/L (98-107)
[2020-07-08] MEDS ORDERED: KCL 20MEQ/100ML PREMIX 100 ML IV ONE (12:15)
[2020-07-08 12:26] LABS: INR 1.1; PARTIAL THROMBOPLASTIN TIME 35.4 sec (23.4-31.0); PROTHROMBIN TIME 11.9 sec (9.6-11.0)
[2020-07-08 12:30] LABS: PLATELET ESTIMATE INCREASED
[2020-07-08] MEDS ORDERED: SODIUM CHLORIDE 0.9% 1,000 ML IV ONE (12:45)
[2020-07-08 14:56] LABS: CHLORIDE 69 mEq/L (98-107)
[2020-07-08 15:05] LABS: PHOSPHORUS 2.8 mg/dL (2.5-4.9)
[2020-07-08] MEDS: POTASSIUM CHLORIDE INJ 40 MEQ in SODIUM CHLORIDE 0.9% 1,000 ML IV SCH (16:00)
[2020-07-08] MEDS ORDERED: POTASSIUM CHLORIDE INJ 20 MEQ in SODIUM CHLORIDE 0.9% 100 ML IV SCH (16:00)
[2020-07-08] MEDS ORDERED: KCL 20MEQ/100ML PREMIX 100 ML IV SCH (16:00)
[2020-07-08 17:00] VITALS: BP 90/54
[2020-07-08 18:00] VITALS: BP 114/59
[2020-07-08] MEDS ORDERED: ONDANSETRON HCL 4MG/2ML INJ IV PRN (18:45)
[2020-07-08] MEDS ORDERED: ALBUTEROL (0.083%) 2.5MG/3ML NEB HHN SCH (19:00)
[2020-07-08] MEDS ORDERED: SODIUM CHLORIDE 0.9% 1,000 ML IV SCH (19:30)
[2020-07-08 20:00] VITALS: BP 117/57
[2020-07-08] MEDS ORDERED: CEFTRIAXONE 1,000 MG in DEXTROSE 5% WATER 50 ML IV SCH (20:00)
[2020-07-08] MEDS: POTASSIUM CHLORIDE INJ 20 MEQ in SODIUM CHLORIDE 0.9% 100 ML IV SCH (20:52)
[2020-07-08] MEDS: FAMOTIDINE 20MG/2ML VIAL IV SCH (20:53)
[2020-07-08] MEDS ORDERED: CEFTRIAXONE 1 G PREMIX 50 ML IV SCH (21:00)
[2020-07-08 22:00] VITALS: BP 111/95
[2020-07-08 22:08] LABS: BG BASE EXCESS 2.9 mmol/L (-2.0-2.0); BG CARBOXYHEMOGLOBIN 0.2 % (0.5-1.5); BG DEOXYHEMOGLOBIN 11.9 % (0.0-5.0); BG FRACTION INSPIRED OXYGEN 40; BG HCO3 ACT 25.3 mmol/L (22.0-26.0); BG METHEMOGLOBIN 0.2 % (0.0-1.5); BG OXYGEN SATURATION 88.1 % (92.0-98.5); BG OXYHEMOGLOBIN 87.7 % (94.0-97.0); BG PCO2 31.8 mmHg (35.0-45.0); BG PH 7.519 (7.350-7.450); BG PO2 52.3 mmHg (75.0-100.0); BG SAMPLE SITE RIGHT RADIAL; BG VENT MODE NASAL CANNULA
[2020-07-08] MEDS ORDERED: ALBUTEROL (0.083%) 2.5MG/3ML NEB HHN PRN (22:30)
[2020-07-08] MEDS ORDERED: ALBUMIN HUMAN 25GM/100ML (25%) IV NR (23:30)
[2020-07-09] VITALS (56 sets, daily range): BP systolic 66–137; BP diastolic 37–92
[2020-07-09] MEDS ORDERED: ALBUTEROL (0.083%) 2.5MG/3ML NEB HHN SCH
[2020-07-09] MEDS: POTASSIUM CHLORIDE INJ 20 MEQ in SODIUM CHLORIDE 0.9% 100 ML IV SCH ×2 (00:48→06:07)
[2020-07-09 01:18] LABS: CHLORIDE 68 mEq/L (98-107)
[2020-07-09] MEDS: AZITHROMYCIN 500 MG in DEXT 5% WATER 250 ML IV SCH ×2 (03:25→22:14)
[2020-07-09] MEDS: DEXAMETHASONE 4MG/ML 1ML VIAL IV SCH ×4 (03:26→17:31)
[2020-07-09] MEDS ORDERED: ALBUTEROL 6.7GM HFA INHALER ORI PRN (04:15)
[2020-07-09] MEDS ORDERED: ALBUTEROL 6.7GM HFA INHALER ORI SCH (06:00)
[2020-07-09 07:05] LABS: CHLORIDE 70 mEq/L (98-107)
[2020-07-09] MEDS ORDERED: FAMOTIDINE 20MG/2ML VIAL IV SCH (09:00)
[2020-07-09] MEDS ORDERED: NOREPINEPHRINE 32 MG in DEXT 5% WATER 218 ML IV STA (09:19)
[2020-07-09] MEDS: ENOXAPARIN 40MG/0.4ML SYR SUBCUT SCH (10:07)
[2020-07-09] MEDS: FAMOTIDINE 20MG/2ML VIAL IV SCH ×2 (10:07→22:14)
[2020-07-09 10:57] LABS: HEMATOCRIT. 32.4 % (36.0-48.0); HEMOGLOBIN. 10.8 g/dL (12.0-16.0); MEAN CORPUSCULAR HEMOGLOBIN 28.2 pg (28.0-32.0); MEAN PLATELET VOLUME 8.4 fl (7.4-10.4); PLATELET 348 x1000/uL (130-400); RED BLOOD CELL COUNT 3.84 mill/uL (4.2-5.4); RED CELL DISTRIBUTION WIDTH 15.5 % (11.6-14.6)
[2020-07-09 10:59] LABS: MEAN CORPUSCULAR VOLUME 84.3 fL (81.0-99.0)
[2020-07-09] MEDS: ERGOCALCIFEROL 50000UNITS CAPSULE PO SCH (11:00)
[2020-07-09] MEDS ORDERED: MIDAZOLAM 100MG/100ML PMX 100 ML IV PRN (11:15)
[2020-07-09 11:36] LABS: PLATELET ESTIMATE NORMAL
[2020-07-09] MEDS: POTASSIUM CHLORIDE INJ 40 MEQ in SODIUM CHLORIDE 0.9% 1,000 ML IV SCH (11:59)
[2020-07-09] MEDS ORDERED: IPRATROPIUM/ALBUTEROL 0.5-3(2.5)MG/3ML NEB HHN PRN (12:00)
[2020-07-09 13:37] LABS: BG BASE EXCESS -3.8 mmol/L (-2.0-2.0); BG CARBOXYHEMOGLOBIN 0.3 % (0.5-1.5); BG DEOXYHEMOGLOBIN 0.5 % (0.0-5.0); BG FRACTION INSPIRED OXYGEN 100; BG HCO3 ACT 19.6 mmol/L (22.0-26.0); BG METHEMOGLOBIN 0.4 % (0.0-1.5); BG OXYGEN SATURATION 99.5 % (92.0-98.5); BG OXYHEMOGLOBIN 98.8 % (94.0-97.0); BG PCO2 30.1 mmHg (35.0-45.0); BG PH 7.431 (7.350-7.450); BG PO2 211.5 mmHg (75.0-100.0); BG SAMPLE SITE RIGHT RADIAL; BG TOTAL HEMOGLOBIN 11.1 g/dL (12.0-18.0); BG VENT MODE VENT - AC
[2020-07-09] MEDS: IPRATROPIUM/ALBUTEROL 0.5-3(2.5)MG/3ML NEB HHN SCH ×2 (16:10→21:30)
[2020-07-09] MEDS: FENTANYL CITRATE/PF 2,500 MCG in SODIUM CHLORIDE 0.9% 200 ML IV PRN (16:38)
[2020-07-09 17:23] LABS: CHLORIDE 75 mEq/L (98-107)
[2020-07-09] MEDS ORDERED: CEFTRIAXONE 1,000 MG in SODIUM CHLORIDE 0.9% 50 ML IV SCH (20:00)
[2020-07-09] MEDS ORDERED: CALCIUM GLUCONATE 1GM PREMIX 50 ML IV SCH (21:00)
[2020-07-09] MEDS ORDERED: NOREPINEPHRINE 32 MG in DEXT 5% WATER 218 ML IV PRN (22:45)
[2020-07-10] VITALS (92 sets, daily range): BP systolic 73–142; BP diastolic 39–104
[2020-07-10] MEDS: DEXAMETHASONE 4MG/ML 1ML VIAL IV SCH ×4 (01:18→23:41)
[2020-07-10] MEDS: IPRATROPIUM/ALBUTEROL 0.5-3(2.5)MG/3ML NEB HHN SCH ×4 (02:33→15:20)
[2020-07-10 05:04] LABS: HEMATOCRIT. 31.4 % (36.0-48.0); HEMOGLOBIN. 10.5 g/dL (12.0-16.0); MEAN CORPUSCULAR VOLUME 84.1 fL (81.0-99.0); PHOSPHORUS 3.1 mg/dL (2.5-4.9); PLATELET 375 x1000/uL (130-400); RED BLOOD CELL COUNT 3.73 mill/uL (4.2-5.4); RED CELL DISTRIBUTION WIDTH 15.8 % (11.6-14.6)
[2020-07-10 05:06] LABS: CHLORIDE 76 mEq/L (98-107)
[2020-07-10] MEDS ORDERED: POTASSIUM CHLORIDE INJ 40 MEQ in SODIUM CHLORIDE 0.9% 1,000 ML IV SCH (08:00)
[2020-07-10 08:21] LABS: BG BASE EXCESS -1.4 mmol/L (-2.0-2.0); BG CARBOXYHEMOGLOBIN 0.3 % (0.5-1.5); BG DEOXYHEMOGLOBIN 4.2 % (0.0-5.0); BG HCO3 ACT 22.7 mmol/L (22.0-26.0); BG METHEMOGLOBIN 0.1 % (0.0-1.5); BG OXYGEN SATURATION 95.8 % (92.0-98.5); BG OXYHEMOGLOBIN 95.4 % (94.0-97.0); BG PCO2 35.9 mmHg (35.0-45.0); BG PH 7.418 (7.350-7.450); BG SAMPLE SITE RIGHT RADIAL; BG TOTAL HEMOGLOBIN 11.5 g/dL (12.0-18.0); BG VENT MODE VENT - AC
[2020-07-10] MEDS: ERGOCALCIFEROL 50000UNITS CAPSULE PO SCH (08:41)
[2020-07-10] MEDS: FAMOTIDINE 20MG/2ML VIAL IV SCH ×2 (08:41→21:23)
[2020-07-10] MEDS: ENOXAPARIN 40MG/0.4ML SYR SUBCUT SCH (08:43)
[2020-07-10 08:58] LABS: NUCLEATED RED BLOOD CELLS 1 /100 WBC
[2020-07-10 08:59] LABS: PLATELET ESTIMATE NORMAL
[2020-07-10] MEDS: PHENYLEPHRINE 100 MG in DEXT 5% WATER 240 ML IV PRN ×3 (09:02→17:28)
[2020-07-10 09:49] LABS: BG VENT RATE 18 set
[2020-07-10] MEDS: NOREPINEPHRINE 32 MG in SODIUM CHLORIDE 0.9% 218 ML IV PRN ×2 (11:00→21:55)
[2020-07-10] MEDS ORDERED: SODIUM CHLORIDE 3% 250 ML IV SCH (11:00)
[2020-07-10] MEDS ORDERED: MAGNESIUM 2 G PREMIX 50 ML IV SCH (11:00)
[2020-07-10] MEDS ORDERED: KCL 20MEQ/100ML PREMIX 100 ML IV NR (12:00)
[2020-07-10] MEDS: FENTANYL CITRATE/PF 2,500 MCG in SODIUM CHLORIDE 0.9% 200 ML IV PRN (15:27)
[2020-07-10] MEDS: POTASSIUM CHLORIDE INJ 40 MEQ in DEXT 5%/0.9% NACL 1,000 ML IV SCH (17:10)
[2020-07-10] MEDS: CEFEPIME 1,000 MG in DEXTROSE 5% WATER 50 ML IV SCH (17:11)
[2020-07-10 18:12] LABS: CHLORIDE 92 mEq/L (98-107)
[2020-07-10] MEDS ORDERED: MIDAZOLAM HCL 100 MG in DEXT 5% WATER 80 ML IV PRN (18:54)
[2020-07-10] MEDS: AZITHROMYCIN 500 MG in DEXT 5% WATER 250 ML IV SCH (21:11)
[2020-07-11] VITALS (90 sets, daily range): BP systolic 58–201; BP diastolic 38–103
[2020-07-11] MEDS: CEFEPIME 1,000 MG in DEXTROSE 5% WATER 50 ML IV SCH ×3 (01:13→17:34)
[2020-07-11] MEDS: PHENYLEPHRINE 100 MG in SODIUM CHLORIDE 0.9% 240 ML IV PRN ×3 (01:13→17:03)
[2020-07-11] MEDS: IPRATROPIUM/ALBUTEROL 0.5-3(2.5)MG/3ML NEB HHN SCH ×4 (05:27→22:17)
[2020-07-11] MEDS: DEXAMETHASONE 4MG/ML 1ML VIAL IV SCH ×3 (05:29→17:34)
[2020-07-11] MEDS: NOREPINEPHRINE 32 MG in SODIUM CHLORIDE 0.9% 218 ML IV PRN ×2 (06:37→17:02)
[2020-07-11] MEDS: POTASSIUM CHLORIDE INJ 40 MEQ in DEXT 5%/0.9% NACL 1,000 ML IV SCH (06:45)
[2020-07-11 08:07] LABS: CHLORIDE 97 mEq/L (98-107)
[2020-07-11 08:13] LABS: HEMATOCRIT. 28.3 % (36.0-48.0); HEMOGLOBIN. 9.3 g/dL (12.0-16.0); MEAN CORPUSCULAR HEMOGLOBIN 28.7 pg (28.0-32.0); MEAN CORPUSCULAR VOLUME 87.3 fL (81.0-99.0); MEAN PLATELET VOLUME 8.7 fl (7.4-10.4); PHOSPHORUS 2.7 mg/dL (2.5-4.9); PLATELET 301 x1000/uL (130-400); RED BLOOD CELL COUNT 3.24 mill/uL (4.2-5.4); RED CELL DISTRIBUTION WIDTH 16.5 % (11.6-14.6)
[2020-07-11] MEDS: ENOXAPARIN 40MG/0.4ML SYR SUBCUT SCH (08:56)
[2020-07-11] MEDS: FAMOTIDINE 20MG/2ML VIAL IV SCH ×2 (09:01→21:15)
[2020-07-11] MEDS ORDERED: MIDAZOLAM HCL 100 MG in SODIUM CHLORIDE 0.9% 80 ML IV PRN (12:49)
[2020-07-11] MEDS ORDERED: CALCIUM GLUCONATE 1GM PREMIX 50 ML IV NR (13:30)
[2020-07-11] MEDS: POTASSIUM CHLORIDE INJ 10 MEQ in DEXT 5%/0.9% NACL 1,000 ML IV SCH (15:22)
[2020-07-11] MEDS: FENTANYL CITRATE/PF 2,500 MCG in SODIUM CHLORIDE 0.9% 200 ML IV PRN (17:36)
[2020-07-11 18:21] LABS: BG BASE EXCESS -11.4 mmol/L (-2.0-2.0); BG CARBOXYHEMOGLOBIN 0.3 % (0.5-1.5); BG DEOXYHEMOGLOBIN 0.4 % (0.0-5.0); BG FRACTION INSPIRED OXYGEN 70; BG HCO3 ACT 14.1 mmol/L (22.0-26.0); BG METHEMOGLOBIN 0.6 % (0.0-1.5); BG OXYGEN SATURATION 99.6 % (92.0-98.5); BG OXYHEMOGLOBIN 98.7 % (94.0-97.0); BG PCO2 30.4 mmHg (35.0-45.0); BG PH 7.284 (7.350-7.450); BG PO2 213.9 mmHg (75.0-100.0); BG SAMPLE SITE RIGHT BRACHIAL; BG TOTAL HEMOGLOBIN 10.2 g/dL (12.0-18.0); BG VENT MODE VENT - AC
[2020-07-11 18:44] LABS: PLATELET ESTIMATE NORMAL
[2020-07-11] MEDS: AZITHROMYCIN 500 MG in DEXT 5% WATER 250 ML IV SCH (21:00)
[2020-07-11] MEDS ORDERED: ALBUMIN HUMAN 25GM/100ML (25%) IV NR (22:00)
[2020-07-11] MEDS ORDERED: SODIUM CHLORIDE 0.9% 100 ML IV ONE (22:00)
[2020-07-12] VITALS (57 sets, daily range): BP systolic 82–117; BP diastolic 60–89
[2020-07-12] MEDS: DEXAMETHASONE 4MG/ML 1ML VIAL IV SCH ×4 (00:55→18:12)
[2020-07-12] MEDS: NOREPINEPHRINE 32 MG in SODIUM CHLORIDE 0.9% 218 ML IV SCH ×2 (01:30→19:26)
[2020-07-12] MEDS: PHENYLEPHRINE 100 MG in SODIUM CHLORIDE 0.9% 240 ML IV PRN ×2 (01:30→10:13)
[2020-07-12] MEDS: CEFEPIME 1,000 MG in DEXTROSE 5% WATER 50 ML IV SCH ×3 (02:00→18:11)
[2020-07-12] MEDS: IPRATROPIUM/ALBUTEROL 0.5-3(2.5)MG/3ML NEB HHN SCH ×4 (03:30→21:53)
[2020-07-12] MEDS: POTASSIUM CHLORIDE INJ 10 MEQ in DEXT 5%/0.9% NACL 1,000 ML IV SCH (05:00)
[2020-07-12 05:58] LABS: HEMATOCRIT. 27.4 % (36.0-48.0); HEMOGLOBIN. 8.5 g/dL (12.0-16.0); MEAN CORPUSCULAR HEMOGLOBIN 28.7 pg (28.0-32.0); MEAN CORPUSCULAR VOLUME 92.1 fL (81.0-99.0); MEAN PLATELET VOLUME 8.9 fl (7.4-10.4); PLATELET 207 x1000/uL (130-400); RED BLOOD CELL COUNT 2.97 mill/uL (4.2-5.4); RED CELL DISTRIBUTION WIDTH 17.6 % (11.6-14.6)
[2020-07-12 07:22] LABS: CHLORIDE 103 mEq/L (98-107)
[2020-07-12 09:08] LABS: BG BASE EXCESS -17.3 mmol/L (-2.0-2.0); BG CARBOXYHEMOGLOBIN 0.3 % (0.5-1.5); BG DEOXYHEMOGLOBIN 0.9 % (0.0-5.0); BG FRACTION INSPIRED OXYGEN 70; BG HCO3 ACT 9.4 mmol/L (22.0-26.0); BG METHEMOGLOBIN 0.3 % (0.0-1.5); BG OXYGEN SATURATION 99.1 % (92.0-98.5); BG OXYHEMOGLOBIN 98.5 % (94.0-97.0); BG PCO2 25.5 mmHg (35.0-45.0); BG PH 7.184 (7.350-7.450); BG PO2 175.2 mmHg (75.0-100.0); BG SAMPLE SITE RIGHT BRACHIAL; BG TOTAL HEMOGLOBIN 11.8 g/dL (12.0-18.0); BG VENT MODE VENT - AC
[2020-07-12] MEDS: FAMOTIDINE 20MG/2ML VIAL IV SCH ×2 (09:22→21:05)
[2020-07-12] MEDS: ENOXAPARIN 40MG/0.4ML SYR SUBCUT SCH (09:22)
[2020-07-12] MEDS ORDERED: SODIUM BICARBONATE 8.4% 1 MEQ/ML 50ML SYR IV SCH (09:30)
[2020-07-12] MEDS ORDERED: SODIUM BICARBONATE 100 MEQ in SODIUM CHLORIDE 0.9% 1,000 ML IV SCH (11:30)
[2020-07-12 12:13] LABS: CHLORIDE 102 mEq/L (98-107)
[2020-07-12 12:58] LABS: BG BASE EXCESS -15.5 mmol/L (-2.0-2.0); BG CARBOXYHEMOGLOBIN 0.3 % (0.5-1.5); BG DEOXYHEMOGLOBIN 0.9 % (0.0-5.0); BG FRACTION INSPIRED OXYGEN 70; BG HCO3 ACT 10.8 mmol/L (22.0-26.0); BG METHEMOGLOBIN 0.2 % (0.0-1.5); BG OXYGEN SATURATION 99.1 % (92.0-98.5); BG OXYHEMOGLOBIN 98.6 % (94.0-97.0); BG PCO2 27.1 mmHg (35.0-45.0); BG PH 7.217 (7.350-7.450); BG PO2 204.1 mmHg (75.0-100.0); BG SAMPLE SITE RIGHT RADIAL; BG TOTAL HEMOGLOBIN 10.1 g/dL (12.0-18.0); BG VENT MODE VENT - AC
[2020-07-12] MEDS ORDERED: ALBUMIN HUMAN 25GM/100ML (25%) IV NR (13:00)
[2020-07-12] MEDS ORDERED: CALCIUM GLUCONATE 1,000 MG in DEXT 5% WATER 90 ML IV SCH (14:00)
[2020-07-12] MEDS: CALCIUM GLUCONATE 1GM PREMIX 50 ML IV SCH ×2 (14:22→21:05)
[2020-07-12] MEDS: SODIUM BICARBONATE 150 MEQ in DEXTROSE 5% WATER 850 ML IV SCH (15:03)
[2020-07-12 18:19] LABS: PLATELET ESTIMATE NORMAL
[2020-07-12 18:34] LABS: CHLORIDE 102 mEq/L (98-107)
[2020-07-12] MEDS: PHENYLEPHRINE 100 MG in DEXT 5% WATER 240 ML IV PRN (19:26)
[2020-07-12] MEDS: AZITHROMYCIN 500 MG in DEXT 5% WATER 250 ML IV SCH (21:05)
[2020-07-13] VITALS (71 sets, daily range): BP systolic 79–124; BP diastolic 53–90
[2020-07-13] MEDS: DEXAMETHASONE 4MG/ML 1ML VIAL IV SCH ×5 (00:45→23:53)
[2020-07-13] MEDS: FENTANYL CITRATE/PF 2,500 MCG in SODIUM CHLORIDE 0.9% 200 ML IV PRN ×3 (00:46→17:59)
[2020-07-13 00:52] LABS: CHLORIDE 102 mEq/L (98-107)
[2020-07-13] MEDS: CEFEPIME 1,000 MG in DEXTROSE 5% WATER 50 ML IV SCH ×3 (02:39→18:02)
[2020-07-13] MEDS: IPRATROPIUM/ALBUTEROL 0.5-3(2.5)MG/3ML NEB HHN SCH ×4 (04:11→22:01)
[2020-07-13 06:54] LABS: PHOSPHORUS 3.2 mg/dL (2.5-4.9)
[2020-07-13] MEDS ORDERED: SODIUM BICARBONATE 8.4% 1 MEQ/ML 50ML SYR IV SCH (08:45)
[2020-07-13] MEDS: FAMOTIDINE 20MG/2ML VIAL IV SCH ×2 (10:00→21:10)
[2020-07-13] MEDS: CALCIUM GLUCONATE 1GM PREMIX 50 ML IV SCH (10:00)
[2020-07-13] MEDS: ENOXAPARIN 40MG/0.4ML SYR SUBCUT SCH (10:00)
[2020-07-13 10:40] LABS: BG BASE EXCESS -16.4 mmol/L (-2.0-2.0); BG CARBOXYHEMOGLOBIN 0.3 % (0.5-1.5); BG DEOXYHEMOGLOBIN 3.1 % (0.0-5.0); BG FRACTION INSPIRED OXYGEN 40; BG HCO3 ACT 9.8 mmol/L (22.0-26.0); BG METHEMOGLOBIN 0.2 % (0.0-1.5); BG OXYGEN SATURATION 96.9 % (92.0-98.5); BG OXYHEMOGLOBIN 96.4 % (94.0-97.0); BG PCO2 24.4 mmHg (35.0-45.0); BG PO2 103.1 mmHg (75.0-100.0); BG SAMPLE SITE RIGHT RADIAL; BG TOTAL HEMOGLOBIN 9.1 g/dL (12.0-18.0); BG VENT MODE VENT - AC
[2020-07-13] MEDS: PHENYLEPHRINE 100 MG in DEXT 5% WATER 240 ML IV PRN (11:07)
[2020-07-13] MEDS: NOREPINEPHRINE 32 MG in SODIUM CHLORIDE 0.9% 218 ML IV SCH (19:11)
[2020-07-13] MEDS: PHENYLEPHRINE 100 MG in SODIUM CHLORIDE 0.9% 240 ML IV PRN (19:12)
[2020-07-13] MEDS: SODIUM BICARBONATE 150 MEQ in DEXTROSE 5% WATER 850 ML IV SCH (21:10)
[2020-07-13] MEDS: AZITHROMYCIN 500 MG in DEXT 5% WATER 250 ML IV SCH (21:10)
[2020-07-14] VITALS (104 sets, daily range): BP systolic 68–132; BP diastolic 48–86
[2020-07-14] MEDS: CEFEPIME 1,000 MG in DEXTROSE 5% WATER 50 ML IV SCH ×3 (02:20→17:10)
[2020-07-14] MEDS: IPRATROPIUM/ALBUTEROL 0.5-3(2.5)MG/3ML NEB HHN SCH ×4 (03:57→21:10)
[2020-07-14 05:30] LABS: HEMATOCRIT. 26.6 % (36.0-48.0); HEMOGLOBIN. 8.7 g/dL (12.0-16.0); MEAN CORPUSCULAR HEMOGLOBIN 27.9 pg (28.0-32.0); MEAN CORPUSCULAR VOLUME 85.5 fL (81.0-99.0); MEAN PLATELET VOLUME 8.9 fl (7.4-10.4); PLATELET 131 x1000/uL (130-400); RED BLOOD CELL COUNT 3.11 mill/uL (4.2-5.4)
[2020-07-14] MEDS: FENTANYL CITRATE/PF 2,500 MCG in SODIUM CHLORIDE 0.9% 200 ML IV PRN ×4 (05:31→19:53)
[2020-07-14] MEDS: DEXAMETHASONE 4MG/ML 1ML VIAL IV SCH ×3 (05:37→17:10)
[2020-07-14] MEDS: SODIUM BICARBONATE 150 MEQ in DEXTROSE 5% WATER 850 ML IV SCH (08:54)
[2020-07-14] MEDS: ENOXAPARIN 40MG/0.4ML SYR SUBCUT SCH (09:17)
[2020-07-14] MEDS: FAMOTIDINE 20MG/2ML VIAL IV SCH ×2 (09:17→20:32)
[2020-07-14] MEDS: CALCIUM GLUCONATE 1GM PREMIX 50 ML IV SCH (09:17)
[2020-07-14 10:05] LABS: BG BASE EXCESS -5.4 mmol/L (-2.0-2.0); BG CARBOXYHEMOGLOBIN 0.3 % (0.5-1.5); BG FRACTION INSPIRED OXYGEN 40; BG HCO3 ACT 18.4 mmol/L (22.0-26.0); BG METHEMOGLOBIN 0.3 % (0.0-1.5); BG OXYHEMOGLOBIN 97.4 % (94.0-97.0); BG PCO2 29.8 mmHg (35.0-45.0); BG PH 7.409 (7.350-7.450); BG PO2 108.8 mmHg (75.0-100.0); BG SAMPLE SITE RIGHT RADIAL; BG TOTAL HEMOGLOBIN 9.2 g/dL (12.0-18.0); BG TOTAL RESPIRATORY RATE 20 b/min; BG VENT MODE VENT - AC
[2020-07-14 14:30] LABS: NUCLEATED RED BLOOD CELLS 1 /100 WBC; PLATELET ESTIMATE NORMAL
[2020-07-14] MEDS: PHENYLEPHRINE 100 MG in SODIUM CHLORIDE 0.9% 240 ML IV PRN (16:45)
[2020-07-15] VITALS (92 sets, daily range): BP systolic 58–142; BP diastolic 44–102
[2020-07-15] MEDS: DEXAMETHASONE 4MG/ML 1ML VIAL IV SCH ×5 (00:04→23:38)
[2020-07-15] MEDS: PHENYLEPHRINE 100 MG in SODIUM CHLORIDE 0.9% 240 ML IV SCH ×4 (00:27→20:08)
[2020-07-15] MEDS: IPRATROPIUM/ALBUTEROL 0.5-3(2.5)MG/3ML NEB HHN SCH ×3 (01:25→21:40)
[2020-07-15] MEDS: CEFEPIME 1,000 MG in DEXTROSE 5% WATER 50 ML IV SCH ×3 (02:24→18:34)
[2020-07-15] MEDS: CALCIUM GLUCONATE 1GM PREMIX 50 ML IV SCH (09:43)
[2020-07-15] MEDS: ENOXAPARIN 40MG/0.4ML SYR SUBCUT SCH (09:43)
[2020-07-15] MEDS: SODIUM BICARBONATE 150 MEQ in DEXTROSE 5% WATER 850 ML IV SCH ×2 (09:44→15:44)
[2020-07-15] MEDS: FAMOTIDINE 20MG/2ML VIAL IV SCH ×2 (10:37→21:18)
[2020-07-15 11:13] LABS: BG CARBOXYHEMOGLOBIN 0.3 % (0.5-1.5); BG DEOXYHEMOGLOBIN 5.9 % (0.0-5.0); BG FRACTION INSPIRED OXYGEN 40; BG HCO3 ACT 21.4 mmol/L (22.0-26.0); BG METHEMOGLOBIN 0.1 % (0.0-1.5); BG OXYGEN SATURATION 94.1 % (92.0-98.5); BG OXYHEMOGLOBIN 93.7 % (94.0-97.0); BG PCO2 31.6 mmHg (35.0-45.0); BG PH 7.449 (7.350-7.450); BG PO2 71.3 mmHg (75.0-100.0); BG SAMPLE SITE RIGHT RADIAL; BG TOTAL HEMOGLOBIN 9.6 g/dL (12.0-18.0); BG TOTAL RESPIRATORY RATE 21 b/min; BG VENT MODE VENT - AC
[2020-07-15 12:12] LABS: HEMATOCRIT. 26.4 % (36.0-48.0); HEMOGLOBIN. 8.6 g/dL (12.0-16.0); MEAN CORPUSCULAR HEMOGLOBIN 27.6 pg (28.0-32.0); MEAN PLATELET VOLUME 9.9 fl (7.4-10.4); PLATELET 123 x1000/uL (130-400); RED BLOOD CELL COUNT 3.11 mill/uL (4.2-5.4); RED CELL DISTRIBUTION WIDTH 16.7 % (11.6-14.6)
[2020-07-15 16:50] LABS: NUCLEATED RED BLOOD CELLS 4 /100 WBC; PLATELET ESTIMATE DECREASED
[2020-07-15] MEDS: MICAFUNGIN 100 MG in SODIUM CHLORIDE 0.9% 100 ML IV SCH (17:32)
[2020-07-15] MEDS: LINEZOLID 600 MG PREMIX 300 ML IV SCH (17:36)
[2020-07-15] MEDS: METRONIDAZOLE 500 MG PREMIX 100 ML IV SCH ×2 (19:08→23:38)
[2020-07-16] VITALS (96 sets, daily range): BP systolic 72–146; BP diastolic 47–98
[2020-07-16] MEDS: PHENYLEPHRINE 100 MG in SODIUM CHLORIDE 0.9% 240 ML IV SCH ×3 (02:47→17:05)
[2020-07-16] MEDS: IPRATROPIUM/ALBUTEROL 0.5-3(2.5)MG/3ML NEB HHN SCH ×5 (04:00→21:18)
[2020-07-16] MEDS: SODIUM BICARBONATE 150 MEQ in DEXTROSE 5% WATER 850 ML IV SCH (05:32)
[2020-07-16] MEDS: DEXAMETHASONE 4MG/ML 1ML VIAL IV SCH ×3 (05:36→18:11)
[2020-07-16] MEDS: LINEZOLID 600 MG PREMIX 300 ML IV SCH ×2 (05:53→18:11)
[2020-07-16 08:15] LABS: HEMATOCRIT. 27.1 % (36.0-48.0); HEMOGLOBIN. 8.7 g/dL (12.0-16.0); MEAN CORPUSCULAR HEMOGLOBIN 27.5 pg (28.0-32.0); MEAN CORPUSCULAR VOLUME 85.5 fL (81.0-99.0); MEAN PLATELET VOLUME 9.8 fl (7.4-10.4); PLATELET 113 x1000/uL (130-400); RED BLOOD CELL COUNT 3.17 mill/uL (4.2-5.4); RED CELL DISTRIBUTION WIDTH 16.9 % (11.6-14.6)
[2020-07-16] MEDS: METRONIDAZOLE 500 MG PREMIX 100 ML IV SCH ×2 (08:58→15:22)
[2020-07-16] MEDS: CALCIUM GLUCONATE 1GM PREMIX 50 ML IV SCH ×2 (08:59→22:29)
[2020-07-16] MEDS: ENOXAPARIN 40MG/0.4ML SYR SUBCUT SCH (09:01)
[2020-07-16 09:21] LABS: BG BASE EXCESS -2.1 mmol/L (-2.0-2.0); BG CARBOXYHEMOGLOBIN 0.3 % (0.5-1.5); BG DEOXYHEMOGLOBIN 1.2 % (0.0-5.0); BG FRACTION INSPIRED OXYGEN 50; BG HCO3 ACT 20.1 mmol/L (22.0-26.0); BG METHEMOGLOBIN 0.3 % (0.0-1.5); BG OXYGEN SATURATION 98.8 % (92.0-98.5); BG OXYHEMOGLOBIN 98.2 % (94.0-97.0); BG PCO2 26.1 mmHg (35.0-45.0); BG PH 7.505 (7.350-7.450); BG PO2 142.2 mmHg (75.0-100.0); BG SAMPLE SITE RIGHT BRACHIAL; BG TOTAL HEMOGLOBIN 9.6 g/dL (12.0-18.0); BG VENT MODE VENT - AC
[2020-07-16] MEDS: ERGOCALCIFEROL 50000UNITS CAPSULE PO SCH (09:55)
[2020-07-16] MEDS: FAMOTIDINE 20MG/2ML VIAL IV SCH ×2 (09:55→22:28)
[2020-07-16] MEDS: DEXT 5%/0.9% NACL 1,000 ML IV SCH (10:48)
[2020-07-16 11:43] LABS: NUCLEATED RED BLOOD CELLS 2 /100 WBC
[2020-07-16 11:44] LABS: PLATELET ESTIMATE SLIGHTLY DECREASED
[2020-07-16] MEDS: MICAFUNGIN 100 MG in SODIUM CHLORIDE 0.9% 100 ML IV SCH (16:57)
[2020-07-17] VITALS (81 sets, daily range): BP systolic 64–163; BP diastolic 35–106
[2020-07-17] MEDS: METRONIDAZOLE 500 MG PREMIX 100 ML IV SCH ×2 (00:01→08:16)
[2020-07-17] MEDS: DEXAMETHASONE 4MG/ML 1ML VIAL IV SCH ×4 (00:01→18:14)
[2020-07-17] MEDS: PHENYLEPHRINE 100 MG in SODIUM CHLORIDE 0.9% 240 ML IV SCH ×4 (00:01→16:23)
[2020-07-17] MEDS: IPRATROPIUM/ALBUTEROL 0.5-3(2.5)MG/3ML NEB HHN SCH ×5 (00:45→21:14)
[2020-07-17] MEDS: LINEZOLID 600 MG PREMIX 300 ML IV SCH ×2 (04:56→18:50)
[2020-07-17] MEDS: DEXT 5%/0.9% NACL 1,000 ML IV SCH (04:56)
[2020-07-17] MEDS: FAMOTIDINE 20MG/2ML VIAL IV SCH ×2 (08:16→21:35)
[2020-07-17] MEDS: ENOXAPARIN 40MG/0.4ML SYR SUBCUT SCH (08:17)
[2020-07-17 08:39] LABS: CHLORIDE 96 mEq/L (98-107); HEMATOCRIT. 25.6 % (36.0-48.0); HEMOGLOBIN. 8.1 g/dL (12.0-16.0); MEAN CORPUSCULAR HEMOGLOBIN 27.5 pg (28.0-32.0); MEAN CORPUSCULAR VOLUME 86.9 fL (81.0-99.0); MEAN PLATELET VOLUME 10.5 fl (7.4-10.4); PLATELET 110 x1000/uL (130-400); RED BLOOD CELL COUNT 2.94 mill/uL (4.2-5.4); RED CELL DISTRIBUTION WIDTH 16.6 % (11.6-14.6)
[2020-07-17] MEDS: CALCIUM GLUCONATE 1GM PREMIX 50 ML IV SCH ×2 (09:00→21:35)
[2020-07-17 13:24] LABS: NUCLEATED RED BLOOD CELLS 1 /100 WBC; PLATELET ESTIMATE DECREASED
[2020-07-17] MEDS: SODIUM CHLORIDE 0.9% 1,000 ML IV SCH (14:06)
[2020-07-17] MEDS: NOREPINEPHRINE 32 MG in SODIUM CHLORIDE 0.9% 218 ML IV SCH (16:20)
[2020-07-17] MEDS: MEROPENEM 2,000 MG in SODIUM CHLORIDE 0.9% 100 ML IV SCH (18:05)
[2020-07-17] MEDS: MICAFUNGIN 100 MG in SODIUM CHLORIDE 0.9% 100 ML IV SCH (21:35)
[2020-07-17] MEDS: ENOXAPARIN 30MG/0.3ML SYR SUBCUT SCH (21:35)
[2020-07-18] VITALS (87 sets, daily range): BP systolic 59–164; BP diastolic 32–106
[2020-07-18] MEDS: DEXAMETHASONE 4MG/ML 1ML VIAL IV SCH ×3 (00:12→12:34)
[2020-07-18] MEDS: MEROPENEM 2,000 MG in SODIUM CHLORIDE 0.9% 100 ML IV SCH ×4 (01:11→23:11)
[2020-07-18] MEDS: IPRATROPIUM/ALBUTEROL 0.5-3(2.5)MG/3ML NEB HHN SCH ×2 (05:25→10:07)
[2020-07-18] MEDS: LINEZOLID 600 MG PREMIX 300 ML IV SCH ×2 (05:41→17:33)
[2020-07-18] MEDS: NOREPINEPHRINE 32 MG in SODIUM CHLORIDE 0.9% 218 ML IV SCH (06:33)
[2020-07-18] MEDS: PHENYLEPHRINE 100 MG in SODIUM CHLORIDE 0.9% 240 ML IV SCH ×2 (06:37→16:29)
[2020-07-18 06:51] LABS: HEMOGLOBIN. 8.6 g/dL (12.0-16.0); MEAN CORPUSCULAR HEMOGLOBIN 27.5 pg (28.0-32.0); MEAN CORPUSCULAR VOLUME 86.4 fL (81.0-99.0); MEAN PLATELET VOLUME 10.7 fl (7.4-10.4); PLATELET 150 x1000/uL (130-400); RED BLOOD CELL COUNT 3.12 mill/uL (4.2-5.4); RED CELL DISTRIBUTION WIDTH 16.6 % (11.6-14.6)
[2020-07-18] MEDS: FAMOTIDINE 20MG/2ML VIAL IV SCH ×2 (10:16→20:47)
[2020-07-18] MEDS: CALCIUM GLUCONATE 1GM PREMIX 50 ML IV SCH ×2 (10:16→20:48)
[2020-07-18] MEDS: ENOXAPARIN 30MG/0.3ML SYR SUBCUT SCH ×2 (10:17→20:48)
[2020-07-18] MEDS ORDERED: SODIUM CHLORIDE 0.9% 500 ML IV ONE (11:15)
[2020-07-18 12:09] LABS: BG BASE EXCESS -9.3 mmol/L (-2.0-2.0); BG CARBOXYHEMOGLOBIN 0.3 % (0.5-1.5); BG DEOXYHEMOGLOBIN 2.7 % (0.0-5.0); BG FRACTION INSPIRED OXYGEN 40; BG HCO3 ACT 13.1 mmol/L (22.0-26.0); BG METHEMOGLOBIN 0.4 % (0.0-1.5); BG OXYGEN SATURATION 97.3 % (92.0-98.5); BG OXYHEMOGLOBIN 96.6 % (94.0-97.0); BG PCO2 19.6 mmHg (35.0-45.0); BG PH 7.442 (7.350-7.450); BG PO2 99.8 mmHg (75.0-100.0); BG SAMPLE SITE LEFT RADIAL; BG TOTAL HEMOGLOBIN 9.8 g/dL (12.0-18.0); BG TOTAL RESPIRATORY RATE 32 b/min; BG VENT MODE VENT - AC
[2020-07-18] MEDS: SODIUM CHLORIDE 0.9% 1,000 ML IV SCH ×2 (12:35→23:22)
[2020-07-18] MEDS: VASOPRESSIN 20 UNIT in SODIUM CHLORIDE 0.9% 99 ML IV PRN ×2 (13:19→19:01)
[2020-07-18] MEDS ORDERED: FENTANYL CITRATE/PF 2,500 MCG in SODIUM CHLORIDE 0.9% 200 ML IV PRN (14:30)
[2020-07-18] MEDS: MICAFUNGIN 100 MG in SODIUM CHLORIDE 0.9% 100 ML IV SCH (16:21)
[2020-07-18 20:14] LABS: NUCLEATED RED BLOOD CELLS 2 /100 WBC; PLATELET ESTIMATE NORMAL
[2020-07-18] MEDS: HYDROCORTISONE SOD SUCCINATE 100 MG/2 ML VIAL IV SCH (20:48)
[2020-07-18] MEDS: IPRATROPIUM BROMIDE (0.02%) 0.5MG/2.5ML NEB HHN SCH (21:15)
[2020-07-19] VITALS (86 sets, daily range): BP systolic 65–159; BP diastolic 37–95
[2020-07-19] MEDS: PHENYLEPHRINE 100 MG in SODIUM CHLORIDE 0.9% 240 ML IV SCH ×4 (00:22→23:59)
[2020-07-19] MEDS: VASOPRESSIN 20 UNIT in SODIUM CHLORIDE 0.9% 99 ML IV PRN ×3 (01:51→12:38)
[2020-07-19] MEDS: IPRATROPIUM BROMIDE (0.02%) 0.5MG/2.5ML NEB HHN SCH ×4 (02:45→22:50)
[2020-07-19] MEDS: HYDROCORTISONE SOD SUCCINATE 100 MG/2 ML VIAL IV SCH ×3 (05:04→20:58)
[2020-07-19] MEDS: LINEZOLID 600 MG PREMIX 300 ML IV SCH ×2 (05:05→17:53)
[2020-07-19 06:12] LABS: HEMATOCRIT. 23.7 % (36.0-48.0); HEMOGLOBIN. 7.6 g/dL (12.0-16.0); MEAN CORPUSCULAR HEMOGLOBIN 28.2 pg (28.0-32.0); MEAN CORPUSCULAR VOLUME 87.8 fL (81.0-99.0); MEAN PLATELET VOLUME 11.3 fl (7.4-10.4); PLATELET 150 x1000/uL (130-400)
[2020-07-19 06:25] LABS: PHOSPHORUS 3.8 mg/dL (2.5-4.9)
[2020-07-19] MEDS: MEROPENEM 2,000 MG in SODIUM CHLORIDE 0.9% 100 ML IV SCH ×3 (09:51→23:58)
[2020-07-19] MEDS: FAMOTIDINE 20MG/2ML VIAL IV SCH ×2 (11:04→20:58)
[2020-07-19] MEDS: CALCIUM GLUCONATE 1GM PREMIX 50 ML IV SCH ×2 (11:04→20:58)
[2020-07-19] MEDS: ENOXAPARIN 30MG/0.3ML SYR SUBCUT SCH ×2 (11:05→20:57)
[2020-07-19 11:20] LABS: BG BASE EXCESS -5.2 mmol/L (-2.0-2.0); BG CARBOXYHEMOGLOBIN 0.2 % (0.5-1.5); BG DEOXYHEMOGLOBIN 1.8 % (0.0-5.0); BG HCO3 ACT 16.5 mmol/L (22.0-26.0); BG OXYGEN SATURATION 98.2 % (92.0-98.5); BG PCO2 20.1 mmHg (35.0-45.0); BG PH 7.532 (7.350-7.450); BG PO2 139.7 mmHg (75.0-100.0); BG SAMPLE SITE RIGHT RADIAL; BG TOTAL HEMOGLOBIN 7.8 g/dL (12.0-18.0); BG VENT MODE VENT - AC
[2020-07-19] MEDS: METOCLOPRAMIDE HCL 10MG/2ML VIAL IV SCH ×3 (12:42→23:58)
[2020-07-19] MEDS: MICAFUNGIN 100 MG in SODIUM CHLORIDE 0.9% 100 ML IV SCH (17:05)
[2020-07-19] MEDS: NOREPINEPHRINE 32 MG in SODIUM CHLORIDE 0.9% 218 ML IV SCH (18:20)
[2020-07-19] MEDS: MIDODRINE HCL 5MG TABLET PO SCH (20:57)
[2020-07-19 21:51] LABS: NUCLEATED RED BLOOD CELLS 5 /100 WBC; PLATELET ESTIMATE NORMAL
[2020-07-20] VITALS (110 sets, daily range): BP systolic 62–204; BP diastolic 33–135
[2020-07-20] MEDS: IPRATROPIUM BROMIDE (0.02%) 0.5MG/2.5ML NEB HHN SCH ×4 (04:13→21:30)
[2020-07-20] MEDS: METOCLOPRAMIDE HCL 10MG/2ML VIAL IV SCH ×4 (05:05→23:02)
[2020-07-20] MEDS: HYDROCORTISONE SOD SUCCINATE 100 MG/2 ML VIAL IV SCH ×3 (05:05→20:30)
[2020-07-20] MEDS: LINEZOLID 600 MG PREMIX 300 ML IV SCH (05:05)
[2020-07-20] MEDS: VASOPRESSIN 20 UNIT in SODIUM CHLORIDE 0.9% 99 ML IV PRN ×3 (05:06→21:04)
[2020-07-20 06:21] LABS: HEMATOCRIT. 21.9 % (36.0-48.0); MEAN CORPUSCULAR HEMOGLOBIN 28.6 pg (28.0-32.0); MEAN CORPUSCULAR VOLUME 88.8 fL (81.0-99.0); MEAN PLATELET VOLUME 11.8 fl (7.4-10.4); PLATELET 162 x1000/uL (130-400); RED BLOOD CELL COUNT 2.47 mill/uL (4.2-5.4); RED CELL DISTRIBUTION WIDTH 16.5 % (11.6-14.6)
[2020-07-20 07:45] LABS: PHOSPHORUS 4.9 mg/dL (2.5-4.9)
[2020-07-20] MEDS: MEROPENEM 2,000 MG in SODIUM CHLORIDE 0.9% 100 ML IV SCH ×3 (08:56→23:02)
[2020-07-20] MEDS: PHENYLEPHRINE 100 MG in SODIUM CHLORIDE 0.9% 240 ML IV SCH ×2 (09:07→18:11)
[2020-07-20] MEDS: MIDODRINE HCL 5MG TABLET PO SCH ×4 (09:26→20:31)
[2020-07-20] MEDS: ENOXAPARIN 30MG/0.3ML SYR SUBCUT SCH ×2 (09:27→20:30)
[2020-07-20] MEDS: FAMOTIDINE 20MG/2ML VIAL IV SCH ×2 (09:28→20:31)
[2020-07-20] MEDS: CALCIUM GLUCONATE 1GM PREMIX 50 ML IV SCH ×2 (09:28→20:31)
[2020-07-20] MEDS: SODIUM CHLORIDE 0.9% 1,000 ML IV SCH ×2 (12:36→20:35)
[2020-07-20 16:51] LABS: NUCLEATED RED BLOOD CELLS 7 /100 WBC; PLATELET ESTIMATE NORMAL
[2020-07-21] VITALS (101 sets, daily range): BP systolic 69–167; BP diastolic 42–90
[2020-07-21] MEDS: PHENYLEPHRINE 100 MG in SODIUM CHLORIDE 0.9% 240 ML IV SCH ×3 (01:09→16:33)
[2020-07-21] MEDS: VASOPRESSIN 20 UNIT in SODIUM CHLORIDE 0.9% 99 ML IV PRN ×2 (03:35→13:04)
[2020-07-21] MEDS: IPRATROPIUM BROMIDE (0.02%) 0.5MG/2.5ML NEB HHN SCH ×4 (03:46→21:36)
[2020-07-21 05:11] LABS: HEMATOCRIT. 31.4 % (36.0-48.0); MEAN CORPUSCULAR HEMOGLOBIN 29.5 pg (28.0-32.0); MEAN CORPUSCULAR VOLUME 92.4 fL (81.0-99.0); MEAN PLATELET VOLUME 11.6 fl (7.4-10.4); PLATELET 155 x1000/uL (130-400); RED CELL DISTRIBUTION WIDTH 16.3 % (11.6-14.6)
[2020-07-21] MEDS: METOCLOPRAMIDE HCL 10MG/2ML VIAL IV SCH ×4 (05:37→23:03)
[2020-07-21] MEDS: HYDROCORTISONE SOD SUCCINATE 100 MG/2 ML VIAL IV SCH ×3 (05:37→20:10)
[2020-07-21 07:22] LABS: NUCLEATED RED BLOOD CELLS 7 /100 WBC
[2020-07-21 07:23] LABS: PLATELET ESTIMATE NORMAL
[2020-07-21] MEDS: MEROPENEM 2,000 MG in SODIUM CHLORIDE 0.9% 100 ML IV SCH ×2 (08:29→15:25)
[2020-07-21] MEDS: CALCIUM GLUCONATE 1GM PREMIX 50 ML IV SCH ×2 (08:36→20:10)
[2020-07-21] MEDS: ENOXAPARIN 30MG/0.3ML SYR SUBCUT SCH ×2 (08:50→20:10)
[2020-07-21] MEDS: FAMOTIDINE 20MG/2ML VIAL IV SCH ×2 (08:51→20:11)
[2020-07-21] MEDS: MIDODRINE HCL 5MG TABLET PO SCH ×4 (08:51→20:10)
[2020-07-21 10:39] LABS: CHLORIDE 105 mEq/L (98-107)
[2020-07-21 14:17] LABS: BG BASE EXCESS -9.3 mmol/L (-2.0-2.0); BG CARBOXYHEMOGLOBIN 0.3 % (0.5-1.5); BG DEOXYHEMOGLOBIN 2.4 % (0.0-5.0); BG HCO3 ACT 13.2 mmol/L (22.0-26.0); BG METHEMOGLOBIN 0.2 % (0.0-1.5); BG OXYGEN SATURATION 97.6 % (92.0-98.5); BG OXYHEMOGLOBIN 97.1 % (94.0-97.0); BG PCO2 19.9 mmHg (35.0-45.0); BG PH 7.438 (7.350-7.450); BG PO2 114.2 mmHg (75.0-100.0); BG SAMPLE SITE LEFT RADIAL; BG TOTAL HEMOGLOBIN 9.9 g/dL (12.0-18.0); BG VENT MODE VENT - AC
[2020-07-22] VITALS (99 sets, daily range): BP systolic 44–169; BP diastolic 21–137
[2020-07-22] MEDS: PHENYLEPHRINE 100 MG in SODIUM CHLORIDE 0.9% 240 ML IV SCH ×2 (01:08→09:37)
[2020-07-22] MEDS: IPRATROPIUM BROMIDE (0.02%) 0.5MG/2.5ML NEB HHN SCH ×4 (01:24→21:49)
[2020-07-22] MEDS: MEROPENEM 2,000 MG in SODIUM CHLORIDE 0.9% 100 ML IV SCH ×2 (03:12→17:05)
[2020-07-22] MEDS: HYDROCORTISONE SOD SUCCINATE 100 MG/2 ML VIAL IV SCH ×3 (05:22→20:13)
[2020-07-22] MEDS: METOCLOPRAMIDE HCL 10MG/2ML VIAL IV SCH ×4 (05:22→23:08)
[2020-07-22] MEDS: VASOPRESSIN 20 UNIT in SODIUM CHLORIDE 0.9% 99 ML IV PRN ×3 (05:52→23:13)
[2020-07-22 07:19] LABS: HEMATOCRIT. 30.8 % (36.0-48.0); HEMOGLOBIN. 9.8 g/dL (12.0-16.0); MEAN CORPUSCULAR HEMOGLOBIN 29.4 pg (28.0-32.0); MEAN CORPUSCULAR VOLUME 92.1 fL (81.0-99.0); MEAN PLATELET VOLUME 10.9 fl (7.4-10.4); PLATELET 160 x1000/uL (130-400); RED BLOOD CELL COUNT 3.34 mill/uL (4.2-5.4); RED CELL DISTRIBUTION WIDTH 16.9 % (11.6-14.6)
[2020-07-22] MEDS: MIDODRINE HCL 5MG TABLET PO SCH ×4 (09:02→20:13)
[2020-07-22] MEDS: FAMOTIDINE 20MG/2ML VIAL IV SCH ×2 (09:02→20:12)
[2020-07-22] MEDS: CALCIUM GLUCONATE 1GM PREMIX 50 ML IV SCH ×2 (09:02→20:20)
[2020-07-22] MEDS: ENOXAPARIN 30MG/0.3ML SYR SUBCUT SCH ×2 (09:02→20:13)
[2020-07-22] MEDS ORDERED: SODIUM POLYSTYRENE SULFONATE 15 G/60 ML BOT PO SCH (10:00)
[2020-07-22] MEDS: NOREPINEPHRINE 32 MG in SODIUM CHLORIDE 0.9% 218 ML IV SCH ×2 (11:53→23:49)
[2020-07-22 13:48] LABS: NUCLEATED RED BLOOD CELLS 2 /100 WBC; PLATELET ESTIMATE NORMAL
[2020-07-22 15:37] LABS: BG BASE EXCESS -19.4 mmol/L (-2.0-2.0); BG CARBOXYHEMOGLOBIN 0.3 % (0.5-1.5); BG DEOXYHEMOGLOBIN 1.9 % (0.0-5.0); BG FRACTION INSPIRED OXYGEN 40; BG HCO3 ACT 6.8 mmol/L (22.0-26.0); BG METHEMOGLOBIN 0.4 % (0.0-1.5); BG OXYGEN SATURATION 98.1 % (92.0-98.5); BG OXYHEMOGLOBIN 97.4 % (94.0-97.0); BG PCO2 18.2 mmHg (35.0-45.0); BG PH 7.193 (7.350-7.450); BG PO2 146.9 mmHg (75.0-100.0); BG SAMPLE SITE LEFT RADIAL; BG TOTAL HEMOGLOBIN 9.6 g/dL (12.0-18.0); BG TOTAL RESPIRATORY RATE 27 b/min; BG VENT MODE VENT - AC
[2020-07-22] MEDS ORDERED: SODIUM BICARBONATE 8.4% 1 MEQ/ML 50ML SYR IV SCH (18:30)
[2020-07-22] MEDS ORDERED: SODIUM BICARBONATE 100 MEQ in DEXTROSE 5% WATER 1,000 ML IV SCH (20:00)
[2020-07-23] VITALS (95 sets, daily range): BP systolic 69–110; BP diastolic 39–83
[2020-07-23] MEDS: PHENYLEPHRINE 100 MG in SODIUM CHLORIDE 0.9% 240 ML IV SCH ×4 (00:35→22:57)
[2020-07-23] MEDS: MEROPENEM 2,000 MG in SODIUM CHLORIDE 0.9% 100 ML IV SCH ×2 (03:03→15:45)
[2020-07-23] MEDS: IPRATROPIUM BROMIDE (0.02%) 0.5MG/2.5ML NEB HHN SCH ×4 (03:24→21:19)
[2020-07-23] MEDS: HYDROCORTISONE SOD SUCCINATE 100 MG/2 ML VIAL IV SCH ×3 (05:04→21:32)
[2020-07-23] MEDS: METOCLOPRAMIDE HCL 10MG/2ML VIAL IV SCH ×4 (05:05→23:04)
[2020-07-23] MEDS: NOREPINEPHRINE 32 MG in SODIUM CHLORIDE 0.9% 218 ML IV SCH ×4 (05:05→23:43)
[2020-07-23] MEDS: CALCIUM GLUCONATE 1GM PREMIX 50 ML IV SCH (09:08)
[2020-07-23] MEDS: MIDODRINE HCL 5MG TABLET PO SCH ×4 (09:08→20:54)
[2020-07-23] MEDS: FAMOTIDINE 20MG/2ML VIAL IV SCH ×2 (09:08→20:53)
[2020-07-23] MEDS: ERGOCALCIFEROL 50000UNITS CAPSULE PO SCH (09:08)
[2020-07-23] MEDS: ENOXAPARIN 30MG/0.3ML SYR SUBCUT SCH (09:08)
[2020-07-23] MEDS ORDERED: SODIUM BICARBONATE 8.4% 1 MEQ/ML 50ML SYR IV SCH (10:00)
[2020-07-23 10:17] LABS: BG BASE EXCESS -20.8 mmol/L (-2.0-2.0); BG CARBOXYHEMOGLOBIN 0.3 % (0.5-1.5); BG DEOXYHEMOGLOBIN 2.7 % (0.0-5.0); BG FRACTION INSPIRED OXYGEN 40; BG HCO3 ACT 6.6 mmol/L (22.0-26.0); BG METHEMOGLOBIN 0.1 % (0.0-1.5); BG OXYGEN SATURATION 97.3 % (92.0-98.5); BG OXYHEMOGLOBIN 96.9 % (94.0-97.0); BG PCO2 20.3 mmHg (35.0-45.0); BG PH 7.127 (7.350-7.450); BG PO2 121.2 mmHg (75.0-100.0); BG SAMPLE SITE RIGHT BRACHIAL; BG TOTAL HEMOGLOBIN 7.7 g/dL (12.0-18.0); BG VENT MODE VENT - AC
[2020-07-23] MEDS ORDERED: SODIUM POLYSTYRENE SULFONATE 15 G/60 ML BOT PO SCH (12:00)
[2020-07-23] MEDS: SODIUM BICARBONATE 150 MEQ in DEXTROSE 5% WATER 1,000 ML IV SCH (12:43)
[2020-07-23] MEDS: VASOPRESSIN 20 UNIT in SODIUM CHLORIDE 0.9% 99 ML IV PRN (15:44)
[2020-07-24] VITALS (36 sets, daily range): BP systolic 39–112; BP diastolic 16–66
[2020-07-24] MEDS: VASOPRESSIN 20 UNIT in SODIUM CHLORIDE 0.9% 99 ML IV PRN ×3 (01:31→18:39)
[2020-07-24] MEDS: IPRATROPIUM BROMIDE (0.02%) 0.5MG/2.5ML NEB HHN SCH ×4 (03:05→20:39)
[2020-07-24] MEDS: MEROPENEM 2,000 MG in SODIUM CHLORIDE 0.9% 100 ML IV SCH ×2 (03:35→15:33)
[2020-07-24] MEDS: METOCLOPRAMIDE HCL 10MG/2ML VIAL IV SCH ×3 (05:39→18:07)
[2020-07-24] MEDS: HYDROCORTISONE SOD SUCCINATE 100 MG/2 ML VIAL IV SCH ×3 (05:39→21:08)
[2020-07-24] MEDS: NOREPINEPHRINE 32 MG in SODIUM CHLORIDE 0.9% 218 ML IV SCH ×3 (05:42→18:13)
[2020-07-24] MEDS: PHENYLEPHRINE 100 MG in SODIUM CHLORIDE 0.9% 240 ML IV SCH ×2 (05:43→13:01)
[2020-07-24] MEDS: DOPAMINE 800MG PREMIX (DOUBLE) 250 ML IV PRN ×3 (05:48→19:49)
[2020-07-24] MEDS: SODIUM BICARBONATE 150 MEQ in DEXTROSE 5% WATER 1,000 ML IV SCH ×2 (06:29→20:50)
[2020-07-24] MEDS ORDERED: ENOXAPARIN 40MG/0.4ML SYR SUBCUT SCH (09:00)
[2020-07-24] MEDS ORDERED: CALCIUM GLUCONATE 1GM PREMIX 50 ML IV SCH (09:00)
[2020-07-24] MEDS: FAMOTIDINE 20MG/2ML VIAL IV SCH ×2 (09:35→21:08)
[2020-07-24] MEDS: MIDODRINE HCL 5MG TABLET PO SCH ×4 (09:35→21:00)
[2020-07-24 10:06] LABS: BG CARBOXYHEMOGLOBIN 0.3 % (0.5-1.5); BG DEOXYHEMOGLOBIN 0.6 % (0.0-5.0); BG FRACTION INSPIRED OXYGEN 100; BG HCO3 ACT 2.5 mmol/L (22.0-26.0); BG METHEMOGLOBIN 0.7 % (0.0-1.5); BG OXYGEN SATURATION 99.4 % (92.0-98.5); BG OXYHEMOGLOBIN 98.4 % (94.0-97.0); BG PH 6.793 (7.350-7.450); BG PO2 419.2 mmHg (75.0-100.0); BG SAMPLE SITE LEFT RADIAL; BG TOTAL HEMOGLOBIN 7.9 g/dL (12.0-18.0); BG TOTAL RESPIRATORY RATE 27 b/min; BG VENT MODE VENT - AC
[2020-07-24] MEDS ORDERED: SODIUM BICARBONATE 8.4% 1 MEQ/ML 50ML SYR IV ONE (10:11)
== END 2020-07-24 21:39 | disposition expired | DRG 720 ==
LOC: ER 10:05 → 5EST 12:46 → ENRESERV 15:20 → ER 17:00 → 7EST 23:03 → MICUSO 07-09 11:55 → 5EST 07-10 17:30
PROVIDERS: ADMIT Family Medicine; ATTEND Family Medicine
PROC: 5A1955Z Respiratory Ventilation, Greater than 96 Consecutive Hours (ICD-10-PCS; principal; 2020-07-09)
PROC: 06HY33Z Insertion of Infusion Device into Lower Vein, Percutaneous Approach (ICD-10-PCS; 2020-07-09)
PROC: B54BZZA Ultrasonography of Right Lower Extremity Veins, Guidance (ICD-10-PCS; 2020-07-09)
PROC: 0BH17EZ Insertion of Endotracheal Airway into Trachea, Via Natural or Artificial Opening (ICD-10-PCS; 2020-07-09)
PROC: 30233N1 Transfusion of Nonautologous Red Blood Cells into Peripheral Vein, Percutaneous Approach (ICD-10-PCS; 2020-07-20)
PROC: 5A12012 Performance of Cardiac Output, Single, Manual (ICD-10-PCS; 2020-07-24)
DX: A41.51 Sepsis due to Escherichia coli [E. coli] (principal); D64.9 Anemia, unspecified; E43 Unspecified severe protein-calorie malnutrition; E87.1 Hypo-osmolality and hyponatremia; E87.6 Hypokalemia; I10 Essential (primary) hypertension; G93.40 Encephalopathy, unspecified; J96.01 Acute respiratory failure with hypoxia; R65.21 Severe sepsis with septic shock; J69.0 Pneumonitis due to inhalation of food and vomit; J44.9 Chronic obstructive pulmonary disease, unspecified; K21.9 Gastro-esophageal reflux disease without esophagitis; M06.9 Rheumatoid arthritis, unspecified; K44.9 Diaphragmatic hernia without obstruction or gangrene; K59.00 Constipation, unspecified; H70.13 Chronic mastoiditis, bilateral; Z20.822 Contact with and (suspected) exposure to COVID-19; E87.5 Hyperkalemia; M16.0 Bilateral primary osteoarthritis of hip; L89.159 Pressure ulcer of sacral region, unspecified stage; D69.6 Thrombocytopenia, unspecified; E83.51 Hypocalcemia; E87.4 Mixed disorder of acid-base balance; N39.0 Urinary tract infection, site not specified; M48.54XA Collapsed vertebra, not elsewhere classified, thoracic region, initial encounter for fracture; E11.21 Type 2 diabetes mellitus with diabetic nephropathy; N17.0 Acute kidney failure with tubular necrosis; E66.9 Obesity, unspecified; K72.00 Acute and subacute hepatic failure without coma; E72.20 Disorder of urea cycle metabolism, unspecified; E80.6 Other disorders of bilirubin metabolism; Z87.440 Personal history of urinary (tract) infections; Z88.2 Allergy status to sulfonamides; Z79.82 Long term (current) use of aspirin; Z79.899 Other long term (current) drug therapy; Z86.73 Personal history of transient ischemic attack (TIA), and cerebral infarction without residual deficits; Z68.31 Body mass index [BMI] 31.0-31.9, adult; Z82.49 Family history of ischemic heart disease and other diseases of the circulatory system; I46.9 Cardiac arrest, cause unspecified; I47.1 Supraventricular tachycardia
CPT/HCPCS: 36415; 36600; 71045; 71250; 74018; 74176; 80048; 80053; 80076; 81003; 82040; 82140; 82248; 82306; 82330; 82375; 82805; 82962; 83605; 83735; 83880; 84100; 84134; 84145; 84443; 84450; 84484; 84550; 85025; 86850; 86900; 86920; 87070; 87077; 87186; 92950; 93005; 93970; 94003; 94640; 96374; 99291; A6261; C1725; C1893; J0456; J0610; J0692; J0696; J1100; J1265; J1650; J1720; J2020; J2060; J2185; J2248; J2250; J2370; J2765; J3010; J3475; J3480; J3490; J7030; J7040; J7042; J7050; J7060; J7070; P9016; P9047; U0003; A4315